=== PATIENT | female | born 1970 | race Caucasian/White ===

== ENCOUNTER 2020-03-12 11:34 | Inpatient (IN) | payer MEDICAID, SELFPAY ==
[2020-03-12 11:40] VITALS: BP 153/95; PULSE 92; RESP 18; TEMP 36.4; O2SAT 100; BMI 25.0
--- NOTE | 2020-03-12 11:52 | ED_ITS ---
HPI - Psych General: Chief Complaint: Psychiatric Symptoms Stated Complaint: direct admit npu Time Seen by Provider: 03/12/20 11:38 Source: patient and police Mode of arrival: other Limitations: no limitations History of Present Illness: HPI Narrative: 50-year-old female who is here from [place] with acute psychosis along with methamphetamine abuse. She does admit to using methamphetamine 1 day ago. Patient appears psychotic and has flight of ideas and is rambling and seems agitated. Patient is under a 96-hour hold and was a direct admit to the psychiatric unit and stop by the ER for COVID screening. She has had no fever or cough. Review of Systems Const: Denies: fever(s), chills, body aches or change in appetite Eyes: Denies: blurry vision or eye discomfort ENMT: Denies: throat pain or dental pain Card: Denies: chest pain Resp: Denies: dyspnea GI: Denies: abdominal pain, nausea, vomiting or diarrhea : Denies: dysuria Musc: Denies: neck pain or back pain Skin/Breast: Denies: rash Neuro: Denies: headache(s) Psych: Reports: paranoia Joey/Lymph: Denies: easy bruising All/Imm: Denies: urticaria Physical Exam Const: COMMON NORMALS: no acute distress and patient oriented x3 GENERAL APPEARANCE: disheveled HENMT: COMMON NORMALS: normocephalic and atraumatic HEAD & SCALP: normocephalic and atraumatic Eye: COMMON NORMALS: Equal, round and reactive pupils present and EOMs intact bilaterally PUPIL: Yes Equal, round and reactive pupils present Neck/C-Spine: COMMON NORMALS: full ROM and supple Chest: COMMONS NORMALS: normal inspection of the chest and normal palpation of entire chest wall Resp: COMMON NORMALS: normal respiratory effort, No retractions, No use of accessory muscles and clear to auscultation bilaterally AUSCULTATION: clear to auscultation bilaterally Cardio: COMMON NORMALS: regular rate, regular rhythm and No murmurs present (Cardio) RATE: regular rate RHYTHM: regular rhythm GI: COMMON NORMALS: Normal to inspection, nondistended, normoactive bowel sounds present, Soft to palpation, non-tender and no masses PALPATION: Yes Soft to palpation Extremity: COMMON NORMALS: normal to inspection and full ROM Neuro: COMMON NORMALS: patient oriented x3, moves all extremities and no focal motor deficits Psych: APPEARANCE: Yes unkempt ATTITUDE: Yes paranoid SPEECH: Yes excessive MOOD & AFFECT: Yes anxious THOUGHT PROCESS: Flight of ideas present Skin: COMMON NORMALS: no rashes or lesions noted and no wounds GENERAL SKIN EXAM: no rashes or lesions noted MDM - Psych MDM Narrative: Medical decision making narrative: Patient presents with acute psychosis along with methamphetamine abuse. Patient placed in a 96-hour [facility] and transferred here. Patient had no coronavirus symptoms and will admit to the psychiatric unit. Discharge Plan Discharge Patient Disposition: Admitted As Inpatient Clinical Impression: Drug-induced psychotic disorder, Acute psychosis Condition: Stable Coding Level of Care Code ED Appliance Service Supervisor for Marianne Sadler
[2020-03-12] MEDS: LORazepam 2 mg Tablet PO (12:02)
[2020-03-12 12:24] VITALS: BP 136/95; PULSE 97; RESP 20; TEMP 36.6; O2SAT 99
[2020-03-12 14:00] VITALS: BP 136/95; PULSE 97; RESP 20; TEMP 36.6
[2020-03-12] MEDS: LORazepam 0.5 mg Tablet PO ×2 (15:54→20:36)
[2020-03-12] MEDS: quetiapine 100 mg Tablet PO (20:35)
[2020-03-12] MEDS: trazodone 50 mg Tablet PO (20:36)
--- NOTE | 2020-03-12 20:40 | PC.NURSE ---
PRN TRAZODONE PT REQUESTING SLEEP AID. ADMINISTERED TRAZODONE 50 MG PO. WILL MONITOR FOR MEDICATION EFFECTIVENESS.
[2020-03-12 22:00] VITALS: BP 145/89; PULSE 102; RESP 18; TEMP 36.6; O2SAT 98
[2020-03-13 06:00] VITALS: RESP 17
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
[2020-03-13] MEDS: LORazepam 0.5 mg Tablet PO ×3 (08:06→20:59)
[2020-03-13] MEDS: OLANZapine 5 mg ODT PO (08:06)
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
--- NOTE | 2020-03-13 09:27 | PC.NURSE ---
0845 Carlita Kelley follow up Patient is sleeping and calm
[2020-03-13] MEDS: LORazepam 2 mg Tablet PO (10:36)
--- NOTE | 2020-03-13 10:39 | PC.NURSE ---
Lorazepam 2mg PO now medication given to help resolve psychosis and angitation.
--- NOTE | 2020-03-13 13:02 | PM.NHP ---
Providers/Chief Complaint Admitting Physician: Ken Valle MD Chief Complaint: direct admit npu HPI NPU History of Present Illness History of present illness:Lesley Johnson is a 50 year old female who was transferred from [facility] in [place] on a 96-hour involuntary commitment. The patient is unable to provide significant personal information or historic information at the time of interview as described below in her mental status. However records indicate that police found her [employer] [facility] in [facility]. She was presenting with disorganized and illogical behavior. There is no indication of suicidal or homicidal ideation or self-injurious activity. However she was quite confused and she was taken to the emergency room because of fear that she could not maintain herself free of danger. She admitted to police that she had been using methamphetamine. Records indicate that she had been in the [facility] emergency room multiple times before with similar problems. Urine drug screen is positive for amphetamines and marijuana. Alcohol level was below the measurable limit. Progress note from [facility] PSYCHOLOGY PROFESSOR says that the person had spoken with the daughter. Family indicated that the patient claimed that she was not doing drugs and admitted that she was also not being compliant with her psychiatric medications. Mental health history: Records indicate that she has been diagnosed with bipolar disorder, generalized anxiety disorder, PTSD, substance abuse disorder and the methamphetamine abuse. However there is no indication that he is diagnoses have been acquired from the reliable information source. Social history: Unknown Legal history: Public record indicates that most recently she was charged and convicted of second-degree burglary in 2016. Prior to that, she has arrests and convictions of harassment, placement of a protection order and arrest for marijuana possession. It is also noted that just 3 weeks ago she was in court for a landlord to try to get rent and have her evicted. Past medical history: Listed allergies that are not confirmed: Codeine, Geodon, Haldol, lisinopril Current medication list includes Lamictal, Wellbutrin, buspirone, hydrochlorothiazide, simvastatin, atenolol, hydroxyzine, and aspirin. hypertension, overactive bladder CBC is within normal limits. Routine chemistries within normal limits. Thyroid functions within normal limits. Urine drug screen is positive for amphetamines and marijuana. Alcohol level was below the measurable limit. Urinalysis was unremarkable. She smokes 1/2 pack of cigarettes per day. Meds NPU Allergies Allergy/AdvReac Type Severity Reaction Status Date / Time codeine Allergy Unknown Verified 03/12/20 13:38 haloperidol [From Haldol] Allergy Unknown Verified 03/12/20 13:39 lisinopril Allergy Unknown Verified 03/12/20 13:39 ziprasidone [From Geodon] Allergy Unknown Verified 03/12/20 13:39 Mental Status Exam MSE Comments: Mental Status Exam: The patient is observed through most of the morning to be wandering aimlessly about the unit. She speaks to people at random but does not carry on a conversation. In observation sometimes she appears to be ranting throwing her arms about. On entry into the interview room, she is interpersonally engaged. Eye contact is good. Psychomotoric activity is unremarkable. She is not believed to be a reliable informant that she provides no significant information. Appearance: hygiene is fair; no gross neurological deficits., gait is unremarkable; AIMS=0 Speech: Speech is of normal rate and rhythm. She is very difficult to understand and requires to repeats statements quite frequently. She demonstrates flight of ideas changing subjects almost randomly without completing a single sentence. Thought processes: Thought processes are disorganized with idiosyncratic logic.. Judgment is not adequate for safety. Psychotic processes: There is no indication of guarding or paranoia. There is no attention to the internal stimuli. Auditory and visual hallucinations are denied. Judgment: Insight is very poor. Problem solving skills are not adequate for safety. Orientation: The patient is oriented to person, and situation only. Memory: Not tested Attention: The patient is alert and interpersonally engaged. Language: Verbalizations are not coherent. Fund of knowledge: Fund of knowledge is very poor Affect/Mood: Affect is irritable with a euthymic mood. She denied suicidal ideation Affective range appropriate. Psychosis: Thought processes are so disorganized that she is effectively psychotic. She is unable to organize her understanding of her environment to an extent that she is incapable of remaining out of harm's way and making socially adaptive and life-saving decisions. Vitals/I&O/Wt Last Vital Signs Temp 97.8 F 03/12/20 22:00 Pulse 102 H 03/12/20 22:00 Resp 17 03/13/20 06:00 BP 145/89 03/12/20 22:00 Pulse Ox 98 03/12/20 22:00 Weight last 48 hrs Weight 54.431 kg A&P Additional A&P Information Diagnoses: Amphetamine intoxication with psychosis Assessment: Patient requires forced hospitalization at this time as she is incapable of remaining in the environment and maintaining safety due to her level of disorganized thinking. Treatment plan: Due to the psychiatric conditions and treatment listed in the Assessment and Plan - the patient requires continued hospitalization. Will provide a safe and therapeutic environment for patient.. Will continue inpatient treatment to allow for medication adjustment and monitoring. Will continue q15 min safety checks. Will continue current medications and monitor for medication side effects. Monitor patient's mood, sleep, appetite, and behavior closely. Encourage patient to participate in individual and group therapeutic sessions on the varner. Estimated length of stay 5 days The expected benefits and potential side effects of patient's psychiatric medications were discussed with the patient. The patient understands and consents to treatment.CRITERIA FOR DISCHARGE: stable on medications and no longer an imminent risk Involuntary Hold Information 96 Hour Hold: 96 Hour Involuntary Admission: Yes 96 Hour Hold Ending Date: 03/18/20 96 Hour Hold Ending Time: 12:25 Attestations NPU Medical Necessity Statement*: Patient remained in the hospital another 4-6 nights for the completion of her 96-hour involuntary commitment Coding Level of Care Code Acute Locomotive Boilermaker for Marianne Sadler
[2020-03-13 13:43] VITALS: BP 154/90; PULSE 107; RESP 18; TEMP 36.3; O2SAT 98
[2020-03-13] MEDS: quetiapine 100 mg Tablet PO (20:59)
[2020-03-13] MEDS: trazodone 50 mg Tablet PO (20:59)
--- NOTE | 2020-03-13 20:59 | PC.NURSE ---
PRN TRAZODONE PT REQUESTING SLEEP AID. ADMINISTERED TRAZODONE 50 MG PO. WILL MONITOR FOR MEDICATION EFFECTIVENESS.
[2020-03-13 22:00] VITALS: RESP 17
[2020-03-14] MEDS: OLANZapine 5 mg ODT PO (02:09)
--- NOTE | 2020-03-14 02:11 | PC.NURSE ---
PRN ZYPREXA ZYDIS PT BECOMING INCREASINGLY AGITATED. ADMINISTERED ZYPREXA ZYDIS 5 MG SUBLINGUAL. WILL MONITOR FOR MEDICATION EFFECTIVENESS.
[2020-03-14 06:00] VITALS: BP 144/94; PULSE 97; RESP 18; TEMP 36.4; O2SAT 97
[2020-03-14] MEDS: LORazepam 2 mg Tablet (08:45)
[2020-03-14] MEDS: OLANZapine 5 mg ODT (08:45)
--- NOTE | 2020-03-14 11:11 | PM.NPN ---
Subjective NPU Subjective: Interval history: Patient is without complaint. She continues to be confused. Mental Status Exam MSE Comments: Mental Status Exam: The patient is observed through most of the morning to be wandering aimlessly about the unit. She speaks to people at random but does not carry on a conversation. In observation sometimes she appears to be ranting throwing her arms about. Eye contact is good. Psychomotoric activity is unremarkable. She is not believed to be a reliable informant that she provides no significant information. Appearance: hygiene is fair; no gross neurological deficits., gait is unremarkable; AIMS=0 Speech: Speech is of normal rate and rhythm. She is very difficult to understand and requires to repeats statements quite frequently. She demonstrates flight of ideas changing subjects almost randomly without completing a single sentence. Thought processes: Thought processes are disorganized with idiosyncratic logic.. Judgment is not adequate for safety. Psychotic processes: There is no indication of guarding or paranoia. There is no attention to the internal stimuli. Auditory and visual hallucinations are denied. Judgment: Insight is very poor. Problem solving skills are not adequate for safety. Orientation: The patient is oriented to person, and situation only. Memory: Not tested Attention: The patient is alert and interpersonally engaged. Language: Verbalizations are not coherent. Fund of knowledge: Fund of knowledge is very poor Affect/Mood: Affect is irritable with a euthymic mood. She denied suicidal ideation Affective range appropriate. Psychosis: Thought processes are so disorganized that she is effectively psychotic. She is unable to organize her understanding of her environment to an extent that she is incapable of remaining out of harm's way and making socially adaptive and life-saving decisions. Cognition: Patient Appearance: Appropriate Level of Consciousness: Disoriented Patient Cognition Impaired: Yes (drug use) Ability to Follow Directions: Poor Patient Orientation (long list): Person, Place and Month Comprehension Ability: Moderate Impairment Hallucination Type: None Delusion Description: Not Present Thought Process: Confused and Disorganized Affect: Affect Description: Guarded Behavior: Patient Behavior: Irritable, Negative and Withdrawn Speech Pattern: Pressured and Rambling Vitals/I&O/Wt Last Vital Signs Temp 97.6 F 03/14/20 06:00 Pulse 97 03/14/20 06:00 Resp 18 03/14/20 06:00 BP 144/94 03/14/20 06:00 Pulse Ox 97 03/14/20 06:00 Weight last 48 hrs Weight 54.431 kg A&P Additional A&P Information Diagnoses: Amphetamine intoxication with psychosis Psychotic disorder not otherwise specified Assessment: Patient requires forced hospitalization at this time as she is incapable of remaining in the environment and maintaining safety due to her level of disorganized thinking. Treatment plan: Due to the psychiatric conditions and treatment listed in the Assessment and Plan - the patient requires continued hospitalization. Will provide a safe and therapeutic environment for patient.. Will continue inpatient treatment to allow for medication adjustment and monitoring. Will continue q15 min safety checks. Hospital day #1: Will continue current medications and monitor for medication side effects. Hospital day #2: Patient continues to be disorganized in her thinking and not effectively interacting with her environment. She is now 48 hours at out of her presentation to the emergency room and free of amphetamine use. She is demonstrating no significant improvement. The intent at this time is to address her psychosis as though it is not amphetamine induced and more likely an underlying schizophrenia. Plan: Increase Seroquel to 25 mg 3 times daily and 200 mg at bedtime. Monitor patient's mood, sleep, appetite, and behavior closely. Encourage patient to participate in individual and group therapeutic sessions on the varner. Estimated length of stay 5 days The expected benefits and potential side effects of patient's psychiatric medications were discussed with the patient. The patient understands and consents to treatment.CRITERIA FOR DISCHARGE: stable on medications and no longer an imminent risk Involuntary Hold Information 96 Hour Hold: 96 Hour Involuntary Admission: Yes 96 Hour Hold Ending Date: 03/18/20 96 Hour Hold Ending Time: 12:25 Attestations NPU Medical Necessity Statement*: Patient will remain in the hospital another 4-6 nights for the function of her 96-hour involuntary commitment. Coding Level of Care Code Acute Vacuum Cleaner Repair Person for Marianne Sadler
[2020-03-14] MEDS: nicotine 2 mg Gum BUCCAL ×2 (13:05→21:31)
[2020-03-14 14:00] VITALS: BP 143/101; PULSE 98; RESP 18; TEMP 36.7; O2SAT 97
[2020-03-14] MEDS: quetiapine 25 mg Tablet PO ×2 (14:23→20:41)
[2020-03-14] MEDS: hyDROXYzine 25 mg Capsule 50 MG PO (14:23)
[2020-03-14] MEDS: quetiapine 100 mg Tablet 200 MG PO (20:41)
[2020-03-14 22:00] VITALS: BP 154/97; PULSE 101; RESP 18; TEMP 36.8; O2SAT 99
[2020-03-15 06:00] VITALS: BP 160/90; PULSE 90; RESP 20; TEMP 36.3; O2SAT 97
[2020-03-15] MEDS: hyDROXYzine 25 mg Capsule 50 MG PO ×2 (08:24→21:00)
[2020-03-15] MEDS: quetiapine 25 mg Tablet PO ×3 (08:24→20:59)
--- NOTE | 2020-03-15 08:25 | PC.NURSE ---
PRN VISTARIL 50 MG GIVEN PO PER PT C/O ANXIETY. PT HAS BEEN PACING HALLWAYS, MUTTERING TO HERSELF, CURSING AT TIMES. WILL CONT TO MONITOR
--- NOTE | 2020-03-15 08:59 | PM.NPN ---
Subjective NPU Subjective: Interval history: I need to get out of this place. My daughtere has a big black car. Im going ot have her come get me. The bible is protecting me. It will get me back to [place] . Pt unaware of date. She states the court order doesn't matter as she is going ot go home. She does not know why she is here and has no insight to her problem. Mental Status Exam MSE Comments: Mental Status Exam: Pt encountered resting in bed. She is more engaged in terms of responding to social cues but does not actually have an interactive converation. Eye contact is poor. Psychomotoric activity is unremarkable. She is not believed to be a reliable informant that she provides no significant information. Appearance: hygiene is fair; no gross neurological deficits., gait is unremarkable; AIMS=0 Speech: Speech is of normal rate and rhythm. The clarity of her communication has improved considerably. . She no longer demonstrates flight of ideas . But she perseverates on restorationist explanations of her current situation Thought processes: Thought processes are disorganized with idiosyncratic logic.. Judgment is not adequate for safety. Psychotic processes: There is no indication of guarding or paranoia. There is no attention to the internal stimuli. Auditory and visual hallucinations are denied. Judgment: Insight is very poor. Problem solving skills are not adequate for safety. Orientation: The patient is oriented to person, and situation only. Memory: Not tested Attention: The patient is alert and interpersonally engaged. Language: Verbalizations are not coherent. Fund of knowledge: Fund of knowledge is very poor Affect/Mood: Affect is irritable with a euthymic mood. She denied suicidal ideation Affective range appropriate. Psychosis: Thought processes still disorganized and she is effectively psychotic. She is unable to organize her understanding of her environment to an extent that she is incapable of remaining out of harm's way and making socially adaptive and life-saving decisions. Cognition: Patient Appearance: Appropriate Level of Consciousness: Disoriented Patient Cognition Impaired: Yes (drug use) Ability to Follow Directions: Poor Patient Orientation (long list): Person, Place and Month Comprehension Ability: Moderate Impairment Hallucination Type: None Delusion Description: Not Present Thought Process: Appropriate Affect: Affect Description: Appropriate Behavior: Patient Behavior: Appropriate Speech Pattern: Appropriate and Clear Vitals/I&O/Wt Last Vital Signs Temp 97.4 F L 03/15/20 06:00 Pulse 90 03/15/20 06:00 Resp 20 H 03/15/20 06:00 BP 160/90 03/15/20 06:00 Pulse Ox 97 03/15/20 06:00 A&P Additional A&P Information Diagnoses: Amphetamine intoxication with psychosis Psychotic disorder not otherwise specified Assessment: Patient requires forced hospitalization at this time as she is incapable of remaining in the environment and maintaining safety due to her level of disorganized thinking. Treatment plan: Due to the psychiatric conditions and treatment listed in the Assessment and Plan - the patient requires continued hospitalization. Will provide a safe and therapeutic environment for patient.. Will continue inpatient treatment to allow for medication adjustment and monitoring. Will continue q15 min safety checks. Hospital day #1: Will continue current medications and monitor for medication side effects. Hospital day #2: Patient continues to be disorganized in her thinking and not effectively interacting with her environment. She is now 48 hours at out of her presentation to the emergency room and free of amphetamine use. She is demonstrating no significant improvement. The intent at this time is to address her psychosis as though it is not amphetamine induced and more likely an underlying schizophrenia. Plan: Increase Seroquel to 25 mg 3 times daily and 200 mg at bedtime. Hospital day #3: I need to get out of this place. My daughtere has a big black car. Im going ot have her come get me. The bible is protecting me. It will get me back to [place] . Pt unaware of date. She states the court order doesn't matter as she is going ot go home. She does not know why she is here and has no insight to her problem. Plan: Increase Seroquel at bedtime to 400 mg and continue 3 times daily dosing at 25 mg. Patient remains on a 96-hour involuntary commitment. Monitor patient's mood, sleep, appetite, and behavior closely. Encourage patient to participate in individual and group therapeutic sessions on the varner. Estimated length of stay 5 days The expected benefits and potential side effects of patient's psychiatric medications were discussed with the patient. The patient understands and consents to treatment.CRITERIA FOR DISCHARGE: stable on medications and no longer an imminent risk Involuntary Hold Information 96 Hour Hold: 96 Hour Involuntary Admission: Yes 96 Hour Hold Ending Date: 03/18/20 96 Hour Hold Ending Time: 12:25 Attestations NPU Medical Necessity Statement*: Patient will remain in the hospital another 3-4 nights for the duration of her 96-hour involuntary commitment. Coding Level of Care Code Acute Burr Bench Operator for Marianne Sadler
[2020-03-15 13:33] VITALS: BP 143/83; PULSE 101; RESP 20; TEMP 36.7; O2SAT 98
[2020-03-15] MEDS: nicotine 2 mg Gum BUCCAL (17:10)
[2020-03-15] MEDS: quetiapine 100 mg Tablet 400 MG PO (21:00)
[2020-03-15 22:00] VITALS: BP 120/83; PULSE 105; RESP 20; TEMP 37; O2SAT 96
[2020-03-16 06:00] VITALS: BP 155/92; PULSE 95; RESP 20; TEMP 36.4; O2SAT 98
[2020-03-16] MEDS: quetiapine 25 mg Tablet PO ×4 (08:51→20:38)
[2020-03-16] MEDS: nicotine 21 mg Patch 1 PATCH TRANSDERMA (09:27)
[2020-03-16 14:00] VITALS: BP 136/82; PULSE 94; RESP 17; TEMP 36.6; O2SAT 96
[2020-03-16] MEDS: acetaminophen 325 mg Tablet 650 MG PO ×2 (17:30→20:39)
--- NOTE | 2020-03-16 19:00 | PM.NPN ---
Subjective NPU Subjective: Interval history: The patient babbles incoherently. I am not sure what she is reporting but her mood is certainly related, indeed mildly euphoric. I explained to her about the likelihood of her having to go before the personnel recruiter to request a 21-day extension. I do not think she completely understood but was not upset. I also explained to her my intent to put her on lithium, upon which she had been a long, long time ago and the need for monitoring. Again I am not sure how much got through the verbal static. Medications: Reviewed: Yes Medication Review Details: Current Medications Acetaminophen (Tylenol) 650 mg PO Q4H PRN PRN Reason: MILD PAIN Last Admin: 03/16/20 17:30 Dose: 650 mg Documented by: Benztropine Mesylate (Cogentin) 1 mg PO BID PRN PRN Reason: Mild Extrapyramidal symptoms Camphor/Menthol/Phenol (Blistex) 1 applic TOPICAL Q1H PRN PRN Reason: DRYNESS Diphenhydramine HCl (Benadryl) 50 mg IM ONCE PRN PRN Reason: Severe Extrapyramidal Symptoms Diphenhydramine HCl (Benadryl) 50 mg IM Q4H PRN PRN Reason: Severe Aggression Hydroxyzine Pamoate (Vistaril) 50 mg PO Q6H PRN PRN Reason: ANXIETY Last Admin: 03/15/20 21:00 Dose: 50 mg Documented by: [place] Carbonate (Eskalith) 150 mg PO BID [place] Loperamide HCl (Imodium Capsule) 2 mg PO Q6H PRN PRN Reason: DIARRHEA Nicotine (Nicoderm 21 Mg Patch) 1 patch TRANSDERMA DAILY PRN PRN Reason: NICOTINE WITHDRAWAL Last Admin: 03/16/20 09:27 Dose: 1 patch Documented by: Nicotine Polacrilex (Nicorette) 2 mg BUCCAL Q2H PRN PRN Reason: NICOTINE WITHDRAWAL Last Admin: 03/15/20 17:10 Dose: 2 mg Documented by: Olanzapine (Zyprexa Zydis) 5 mg PO Q4H PRN PRN Reason: Agitation/Psychosis Last Admin: 03/14/20 02:09 Dose: 5 mg Documented by: Ondansetron HCl (Zofran) 4 mg PO Q6H PRN PRN Reason: NAUSEA AND VOMITING Quetiapine Fumarate (Seroquel) 25 mg PO TID [facility] Last Admin: 03/16/20 14:48 Dose: 25 mg Documented by: Quetiapine Fumarate (Seroquel) 400 mg PO BEDTIME [facility] Last Admin: 03/15/20 21:00 Dose: 400 mg Documented by: Mental Status Exam MSE Comments: I am not sure why she looks so much worse than the mental status set forth by my predecessor. She is surely not as well integrated as he described her just yesterday. This is a 50-year-old diminutive female who seems to have reasonable hygiene. Mood is slightly euphoric and affect is labile. Thought processes are racing and given to flight of ideas. Speech is of normal volume but highly pressured but easily understood insofar as enunciation is concerned. The content of her verbalizations spills out of her and is not clear to me at all. Vitals/I&O/Wt Last Vital Signs Temp 97.8 F 03/16/20 14:00 Pulse 94 03/16/20 14:00 Resp 17 03/16/20 14:00 BP 136/82 03/16/20 14:00 Pulse Ox 96 03/16/20 14:00 Weight last 48 hrs Weight 126 lb 8 oz Physical Exam Narrative: EXAM NARRATIVE: Const: COMMON NORMALS: no acute distress and patient oriented x3 GENERAL APPEARANCE: disheveled HENMT: COMMON NORMALS: normocephalic and atraumatic HEAD & SCALP: normocephalic and atraumatic Eye: COMMON NORMALS: Equal, round and reactive pupils present and EOMs intact bilaterally PUPIL: Yes Equal, round and reactive pupils present Neck/C-Spine: COMMON NORMALS: full ROM and supple Chest: COMMONS NORMALS: normal inspection of the chest and normal palpation of entire chest wall Resp: COMMON NORMALS: normal respiratory effort, No retractions, No use of accessory muscles and clear to auscultation bilaterally AUSCULTATION: clear to auscultation bilaterally Cardio: COMMON NORMALS: regular rate, regular rhythm and No murmurs present (Cardio) RATE: regular rate RHYTHM: regular rhythm GI: COMMON NORMALS: Normal to inspection, nondistended, normoactive bowel sounds present, Soft to palpation, non-tender and no masses PALPATION: Yes Soft to palpation Extremity: COMMON NORMALS: normal to inspection and full ROM Neuro: COMMON NORMALS: patient oriented x3, moves all extremities and no focal motor deficits Psych: APPEARANCE: Yes unkempt ATTITUDE: Yes paranoid SPEECH: Yes excessive MOOD & AFFECT: Yes anxious THOUGHT PROCESS: Flight of ideas present Skin: COMMON NORMALS: no rashes or lesions noted and no wounds GENERAL SKIN EXAM: no rashes or lesions noted A&P Assessment and plan (1) Bipolar 1 disorder, manic, moderate: I believe this woman is not psychotic but is rather in the throes of a moderate manic episode. She says she was on lithium before. Why would that be? Status: Acute Involuntary Hold Information 96 Hour Hold: 96 Hour Involuntary Admission: Yes 96 Hour Hold Ending Date: 03/18/20 96 Hour Hold Ending Time: 12:25 Attestations NPU Medical Necessity Statement*: I anticipate 10-12 midnights additional hospitalization Time Spent in Patient Care: Greater than 35 minutes Coding Level of Care Code Acute Supervisor [employer] for [facility] Viktoriya Diagnoses Bipolar 1 disorder, manic, moderate F31.12
[2020-03-16] MEDS: quetiapine 100 mg Tablet 400 MG PO (20:38)
[2020-03-16] MEDS: hyDROXYzine 25 mg Capsule 50 MG PO (20:38)
[2020-03-16] MEDS: nicotine 2 mg Gum BUCCAL (21:38)
[2020-03-16] MEDS: OLANZapine 5 mg ODT PO (21:57)
[2020-03-16 22:00] VITALS: BP 171/97; PULSE 104; RESP 18; TEMP 36.6; O2SAT 98
[2020-03-17 06:00] VITALS: RESP 15
[2020-03-17] MEDS: quetiapine 25 mg Tablet PO (08:25)
[2020-03-17] MEDS: lithium carbonate 150 mg Capsule PO ×2 (08:25→16:56)
[2020-03-17] MEDS: nicotine 2 mg Gum BUCCAL ×2 (08:25→14:24)
[2020-03-17] MEDS: chlorPROMazine 50 mg Tablet (12:19)
[2020-03-17] MEDS: chlorPROMazine 25 mg Tablet PO ×2 (12:23→12:26)
--- NOTE | 2020-03-17 12:27 | PC.NURSE ---
Addendum entered by Merna Yang LPN 03/17/20 12:35: PATIENT WAS YELLING AT THE NURSES STATION AND PUSHED HER BIBLE UP AGAINST ANOTHER PATIENTS BODY AND YELLED AT HER. NO HARM DONE TO OTHER PATIENT. Original Note: PRN THORAZINE THORAZINE 25MG PO FOR AGITATION. PATIENT IS YELLING AND SCREAMING ABOUT THE DEVIL. WILL CONTINUE TO MONITOR FOR MEDICATION EFFECTIVENESS.
--- NOTE | 2020-03-17 13:30 | PC.NURSE ---
PRN THORAZINE FOLLOW UP MEDICATION SOMEWHAT EFFECTIVE. PATIENT IS PACING THE HALLS BUT COOPERATIVE.
[2020-03-17 13:52] VITALS: BP 137/91; PULSE 101; RESP 18; TEMP 36.7; O2SAT 98
[2020-03-17] MEDS: acetaminophen 325 mg Tablet 650 MG PO ×2 (14:26→22:58)
--- NOTE | 2020-03-17 16:15 | P.PN_ITS ---
Subjective NPU Subjective: Interval history: The patient is quite variable. She has been the same day multiply as gone to [facility] alternating with vituperative villification. She has no insight or judgment and is not possible to talk to her, as she just keeps rambling on. Medications: Reviewed: Yes Medication Review Details: Current Medications Acetaminophen (Tylenol) 650 mg PO Q4H PRN PRN Reason: MILD PAIN Last Admin: 03/17/20 14:26 Dose: 650 mg Documented by: Benztropine Mesylate (Cogentin) 1 mg PO BID PRN PRN Reason: Mild Extrapyramidal symptoms Camphor/Menthol/Phenol (Blistex) 1 applic TOPICAL Q1H PRN PRN Reason: DRYNESS Chlorpromazine HCl (Thorazine) 25 mg PO Q4H PRN PRN Reason: AGITATION Last Admin: 03/17/20 12:26 Dose: 25 mg Documented by: Chlorpromazine HCl (Thorazine) 50 mg PO BID [facility] Diphenhydramine HCl (Benadryl) 50 mg IM ONCE PRN PRN Reason: Severe Extrapyramidal Symptoms Diphenhydramine HCl (Benadryl) 50 mg IM Q4H PRN PRN Reason: Severe Aggression Hydroxyzine Pamoate (Vistaril) 50 mg PO Q6H PRN PRN Reason: ANXIETY Last Admin: 03/16/20 20:38 Dose: 50 mg Documented by: [place] Carbonate (Eskalith) 150 mg PO BID [place] Last Admin: 03/17/20 08:25 Dose: 150 mg Documented by: Loperamide HCl (Imodium Capsule) 2 mg PO Q6H PRN PRN Reason: DIARRHEA Nicotine (Nicoderm 21 Mg Patch) 1 patch TRANSDERMA DAILY PRN PRN Reason: NICOTINE WITHDRAWAL Last Admin: 03/16/20 09:27 Dose: 1 patch Documented by: Nicotine Polacrilex (Nicorette) 2 mg BUCCAL Q2H PRN PRN Reason: NICOTINE WITHDRAWAL Last Admin: 03/17/20 14:24 Dose: 2 mg Documented by: Olanzapine (Zyprexa Zydis) 5 mg PO Q4H PRN PRN Reason: Agitation/Psychosis Last Admin: 03/16/20 21:57 Dose: 5 mg Documented by: Ondansetron HCl (Zofran) 4 mg PO Q6H PRN PRN Reason: NAUSEA AND VOMITING Mental Status Exam MSE Comments: The patient sury has described above. Her mood alternates between highly irascible and Bible waving restoration. Thought processes are utterly disrupted and she is very possibly delusional but it is impossible to have a rational conversation with her. She is utterly bereft of insight and speech is pressured. There is no way she could be safely discharged to the streets or to any half-way. Vitals/I&O/Wt Last Vital Signs Temp 98.0 F 03/17/20 13:52 Pulse 101 H 03/17/20 13:52 Resp 18 03/17/20 13:52 BP 137/91 03/17/20 13:52 Pulse Ox 98 03/17/20 13:52 Weight last 48 hrs Weight 126 lb 8 oz Physical Exam Narrative: EXAM NARRATIVE: Const: COMMON NORMALS: no acute distress and patient oriented x3 GENERAL APPEARANCE: disheveled HENMT: COMMON NORMALS: normocephalic and atraumatic HEAD & SCALP: normocephalic and atraumatic Eye: COMMON NORMALS: Equal, round and reactive pupils present and EOMs intact bilaterally PUPIL: Yes Equal, round and reactive pupils present Neck/C-Spine: COMMON NORMALS: full ROM and supple Chest: COMMONS NORMALS: normal inspection of the chest and normal palpation of entire chest wall Resp: COMMON NORMALS: normal respiratory effort, No retractions, No use of accessory muscles and clear to auscultation bilaterally AUSCULTATION: clear to auscultation bilaterally Cardio: COMMON NORMALS: regular rate, regular rhythm and No murmurs present (Cardio) RATE: regular rate RHYTHM: regular rhythm GI: COMMON NORMALS: Normal to inspection, nondistended, normoactive bowel sounds present, Soft to palpation, non-tender and no masses PALPATION: Yes Soft to palpation Extremity: COMMON NORMALS: normal to inspection and full ROM Neuro: COMMON NORMALS: patient oriented x3, moves all extremities and no focal motor deficits Psych: APPEARANCE: Yes unkempt ATTITUDE: Yes paranoid SPEECH: Yes excessive MOOD & AFFECT: Yes anxious THOUGHT PROCESS: Flight of ideas present Skin: COMMON NORMALS: no rashes or lesions noted and no wounds GENERAL SKIN EXAM: no rashes or lesions noted A&P Assessment and plan (1) Bipolar 1 disorder, manic, moderate: Status: Acute Involuntary Hold Information 96 Hour Hold: 96 Hour Involuntary Admission: Yes 96 Hour Hold Ending Date: 03/18/20 96 Hour Hold Ending Time: 12:25 Attestations NPU Medical Necessity Statement*: I anticipate 10-12 midnights additional hospitalization Time Spent in Patient Care: Greater than 35 minutes (>than 50% of time spent in counselling and/or direct pt care on unit) . Much of my time was spent filling out the legal paperwork to extend her involuntary hospitalization. Coding Level of Care Code Acute Hyperbaric Technician for [facility] Diagnoses Bipolar 1 disorder, manic, moderate F31.12
[2020-03-17] MEDS: chlorPROMazine 50 mg Tablet PO (16:56)
[2020-03-17 20:49] VITALS: BP 167/108; PULSE 107; RESP 21; TEMP 36.6; O2SAT 98
[2020-03-17] MEDS: OLANZapine 5 mg ODT PO (22:58)
[2020-03-17] MEDS: hyDROXYzine 25 mg Capsule 50 MG PO (22:58)
--- NOTE | 2020-03-18 00:29 | PC.NURSE ---
PRN VISTARIL & ZYPREXA PT REQUESTING SOMETHING FOR ANXIETY AND AGITATION. VISTARIL 50MG PO AND ZYPREXA ZYDIS 5MG SUBLINGUAL ADMINISTERED. WILL MONITOR FOR MEDICATION EFFECTIVENESS.
[2020-03-18] MEDS: hyDROXYzine 25 mg Capsule 50 MG PO ×2 (05:04→08:07)
--- NOTE | 2020-03-18 05:10 | PC.NURSE ---
PRN VISTARIL PT GIVEN VISTARIL 50 MG PO FOR PT C/O OF INCREASING ANXIETY. WILL MONITOR FOR MEDICATION EFFECTIVENESS.
[2020-03-18] MEDS: OLANZapine 5 mg ODT PO (05:21)
--- NOTE | 2020-03-18 05:23 | PC.NURSE ---
PRN ZYPREXA ZYDIS ADMINISTERED ZYPREXA ZYDIS 5MG SUBLINGUAL FOR INCREASING AGITATION. WILL CONTINUE TO MONITOR.
[2020-03-18 06:00] VITALS: BP 154/75; PULSE 98; RESP 17; TEMP 36.8; O2SAT 99
[2020-03-18] MEDS: chlorPROMazine 50 mg Tablet PO ×2 (08:07→18:08)
[2020-03-18] MEDS: diazePAM 5 mg Tablet PO ×4 (08:07→21:34)
[2020-03-18] MEDS: lithium carbonate 150 mg Capsule PO ×2 (08:07→18:08)
--- NOTE | 2020-03-18 08:08 | PC.NURSE ---
Addendum entered by Onelia Lomax LPN 03/18/20 11:02: prn med effective no further c/o anxiety Original Note: PRN VISTARIL 50 MG GIVEN PO PER PT C/O ANXIETY. PT PACING UNIT, RAPID SPEECH, CURSING TALKING ABOUT SATAN A LOT. WILL CONT TO MONITOR
[2020-03-18] MEDS: nicotine 2 mg Gum BUCCAL ×2 (08:45→14:24)
--- NOTE | 2020-03-18 11:27 | PC.NURSE ---
PATIENT PACING UP AND DOWN HOANG, 1:1 SITTER AT HER SIDE. PATIENT IS ANGRILY CUSSING AND BEING DEMANDING, RAMBLING NONSENSICAL VERBAGE. PHYSICIAN NOTIFIED. VALIUM 5MG PO ADMINISTERED WITHOUT DIFFICULTY. WILL MONITOR FOR DRUG EFFECTIVENESS
--- NOTE | 2020-03-18 12:23 | PM.NPN ---
Subjective NPU Subjective: Interval history: The patient continues to roam hither and yon on the unit and to verbalize to anyone in earshot of her. We have filed for a hearing on a 21-day extension. We have begun lithium titration and added Thorazine for short-term intervention when she escalates, which she did when she was served. As usual, she oscillates between villification and blessings. Medications: Reviewed: Yes Medication Review Details: Current Medications Acetaminophen (Tylenol) 650 mg PO Q4H PRN PRN Reason: MILD PAIN Last Admin: 03/17/20 22:58 Dose: 650 mg Documented by: Benztropine Mesylate (Cogentin) 1 mg PO BID PRN PRN Reason: Mild Extrapyramidal symptoms Camphor/Menthol/Phenol (Blistex) 1 applic TOPICAL Q1H PRN PRN Reason: DRYNESS Chlorpromazine HCl (Thorazine) 25 mg PO Q4H PRN PRN Reason: AGITATION Last Admin: 03/17/20 12:26 Dose: 25 mg Documented by: Chlorpromazine HCl (Thorazine) 50 mg PO BID [facility] Last Admin: 03/18/20 08:07 Dose: 50 mg Documented by: Diazepam (Valium) 5 mg PO TID [facility] Last Admin: 03/18/20 08:07 Dose: 5 mg Documented by: Diphenhydramine HCl (Benadryl) 50 mg IM ONCE PRN PRN Reason: Severe Extrapyramidal Symptoms Diphenhydramine HCl (Benadryl) 50 mg IM Q4H PRN PRN Reason: Severe Aggression Hydroxyzine Pamoate (Vistaril) 50 mg PO Q6H PRN PRN Reason: ANXIETY Last Admin: 03/18/20 08:07 Dose: 50 mg Documented by: [place] Carbonate (Eskalith) 150 mg PO BID [facility] Last Admin: 03/18/20 08:07 Dose: 150 mg Documented by: Loperamide HCl (Imodium Capsule) 2 mg PO Q6H PRN PRN Reason: DIARRHEA Nicotine (Nicoderm 21 Mg Patch) 1 patch TRANSDERMA DAILY PRN PRN Reason: NICOTINE WITHDRAWAL Last Admin: 03/16/20 09:27 Dose: 1 patch Documented by: Nicotine Polacrilex (Nicorette) 2 mg BUCCAL Q2H PRN PRN Reason: NICOTINE WITHDRAWAL Last Admin: 03/18/20 08:45 Dose: 2 mg Documented by: Olanzapine (Zyprexa Zydis) 5 mg PO Q4H PRN PRN Reason: Agitation/Psychosis Last Admin: 03/18/20 05:21 Dose: 5 mg Documented by: Ondansetron HCl (Zofran) 4 mg PO Q6H PRN PRN Reason: NAUSEA AND VOMITING Mental Status Exam MSE Comments: This is a 50-year-old female who paces about the unit and talks a great deal, although without making a lot of sense. It is hard to tell whether she is actually delusional or simply manic. Mood is now angry, now happy, depending on the moment. Affect is wide ranging. Cognitive functions are derailed at the moment and she is bereft of insight and judgment. Fortunately suicidal and homicidal ideation, plan and intent are the farthest things from her mind. Vitals/I&O/Wt Last Vital Signs Temp 98.2 F 03/18/20 06:00 Pulse 98 03/18/20 06:00 Resp 17 03/18/20 06:00 BP 154/75 03/18/20 06:00 Pulse Ox 99 03/18/20 06:00 Physical Exam Narrative: EXAM NARRATIVE: COMMON NORMALS: no acute distress and patient oriented x3 GENERAL APPEARANCE: disheveled HENMT: normocephalic and atraumatic Eye: Equal, round and reactive pupils present and EOMs intact bilaterally PUPIL: Yes Equal, round and reactive pupils present Neck/C-Spine: full ROM and supple Chest: normal inspection of the chest and normal palpation of entire chest wall Resp: normal respiratory effort, No retractions, No use of accessory muscles and clear to auscultation bilaterally AUSCULTATION: clear to auscultation bilaterally Cardio: regular rate, regular rhythm and No murmurs present (Cardio) RATE: regular rate RHYTHM: regular rhythm GI: Normal to inspection, nondistended, normoactive bowel sounds present, Soft to palpation, non-tender and no masses PALPATION: Yes Soft to palpation Extremity: normal to inspection and full ROM Neuro: patient oriented x3, moves all extremities and no focal motor deficits Skin: no rashes or lesions noted and no wounds GENERAL SKIN EXAM: no rashes or lesions noted A&P Assessment and plan (1) Bipolar 1 disorder, manic, moderate: Status: Acute Involuntary Hold Information 96 Hour Hold: 96 Hour Involuntary Admission: Yes 96 Hour Hold Ending Date: 03/18/20 96 Hour Hold Ending Time: 12:25 Attestations NPU Medical Necessity Statement*: I anticipate 5-7 midnights. Time Spent in Patient Care: 16 - 35 minutes (>than 50% of time spent in counselling and/or direct pt care on unit). Coding Level of Care Code Acute Clinical Investigator for Marianne Sadler Diagnoses Bipolar 1 disorder, manic, moderate F31.12
--- NOTE | 2020-03-18 13:55 | PC.NURSE ---
PATIENT RESTING QUIETLY, NO DISTRESS NOTED. WILL CONT TO MONITOR
[2020-03-18 14:00] VITALS: BP 150/85; PULSE 107; RESP 16; TEMP 36.3; O2SAT 98
[2020-03-18] MEDS: acetaminophen 325 mg Tablet 650 MG PO (15:15)
[2020-03-18 19:56] VITALS: BP 152/62; PULSE 108; RESP 17; TEMP 36.7; O2SAT 98
[2020-03-19 05:59] VITALS: BP 162/100; PULSE 98; RESP 22; TEMP 36.4; O2SAT 98
[2020-03-19] MEDS: diazePAM 5 mg Tablet PO ×4 (07:40→20:56)
[2020-03-19] MEDS: chlorPROMazine 50 mg Tablet PO ×2 (08:15→17:11)
[2020-03-19] MEDS: lithium carbonate 150 mg Capsule PO ×2 (08:15→17:11)
[2020-03-19 08:36] LABS: Lithium 0.1 mmol/L (0.6-1.2)
[2020-03-19] MEDS: nicotine 21 mg Patch 1 PATCH TRANSDERMA (08:39)
[2020-03-19] MEDS: chlorPROMazine 25 mg Tablet PO (09:23)
[2020-03-19] MEDS: LORazepam 2 mg Tablet PO (09:23)
--- NOTE | 2020-03-19 09:25 | PC.NURSE ---
Addendum entered by Onelia Lomax LPN 03/19/20 11:19: PRN MED SOMEWHAT EFFECTIVE, PT MOOD IS CALMER Original Note: PRN THORAZINE 25 MG GIVEN PO PER PT C/O AGITATION. PT YELLING, CURSING, CALLING OTHER PATIENTS ON THE UNIT BITCHES AND CUNTS DIFFICULT TO BE REDIRECTED. THREW TRASH DOWN THE HALLWAY. VERY ARGUMENTATIVE. WILL CONT TO MONITOR
--- NOTE | 2020-03-19 11:09 | PM.NPN ---
Subjective NPU Subjective: Interval history: The patient is slightly less active today. However, she remains completely disorganized in her behavior and thought process. She is bereft of insight and judgment. Mental Status Exam MSE Comments: his is a 50-year-old female who paces about the unit and talks a great deal, although without making a lot of sense. It is hard to tell whether she is actually delusional or simply manic. Mood is now angry, now happy, depending on the moment. Affect is wide ranging. Cognitive functions are derailed at the moment and she is bereft of insight and judgment. Fortunately suicidal and homicidal ideation, plan and intent are the farthest things from her mind. Vitals/I&O/Wt Last Vital Signs Temp 97.5 F L 03/19/20 05:59 Pulse 98 03/19/20 05:59 Resp 22 H 03/19/20 05:59 BP 162/100 03/19/20 05:59 Pulse Ox 98 03/19/20 05:59 03/18/20 03/19/20 03/19/20 23:59 07:59 15:59 Intake Total 236 Balance 236 Physical Exam Narrative: EXAM NARRATIVE: COMMON NORMALS: no acute distress and patient oriented x3 GENERAL APPEARANCE: disheveled HENMT: normocephalic and atraumatic Eye: Equal, round and reactive pupils present and EOMs intact bilaterally PUPIL: Yes Equal, round and reactive pupils present Neck/C-Spine: full ROM and supple Chest: normal inspection of the chest and normal palpation of entire chest wall Resp: normal respiratory effort, No retractions, No use of accessory muscles and clear to auscultation bilaterally AUSCULTATION: clear to auscultation bilaterally Cardio: regular rate, regular rhythm and No murmurs present (Cardio) RATE: regular rate RHYTHM: regular rhythm GI: Normal to inspection, nondistended, normoactive bowel sounds present, Soft to palpation, non-tender and no masses PALPATION: Yes Soft to palpation Extremity: normal to inspection and full ROM Neuro: patient oriented x3, moves all extremities and no focal motor deficits Skin: no rashes or lesions noted and no wounds GENERAL SKIN EXAM: no rashes or lesions noted. Involuntary Hold Information 96 Hour Hold: 96 Hour Involuntary Admission: Yes 96 Hour Hold Ending Date: 03/18/20 96 Hour Hold Ending Time: 12:25 Attestations NPU Medical Necessity Statement*: I anticipate 7-10 midnights Time Spent in Patient Care: Greater than 35 minutes It is very difficult to halfway house counselor with patient and very little time is successfully accomplished in that vein. Coding Level of Care Code Acute Content Development Specialist for Marianne Sadler
[2020-03-19 14:00] VITALS: BP 152/82; PULSE 115; RESP 18; TEMP 37.1; O2SAT 97
[2020-03-19] MEDS: simethicone 80 mg Chew PO (15:13)
--- NOTE | 2020-03-19 15:13 | PC.NURSE ---
PRN SIMETHICONE 80 MG TABLET GIVEN PO PER PT C/O GAS. WILL CONT TO MONITOR
[2020-03-19] MEDS: acetaminophen 325 mg Tablet 650 MG PO (20:56)
[2020-03-19] MEDS: hyDROXYzine 25 mg Capsule 50 MG PO (20:56)
[2020-03-19 22:00] VITALS: BP 158/101; PULSE 115; RESP 14; TEMP 36.8
[2020-03-20 06:00] VITALS: BP 161/112; PULSE 105; RESP 17; TEMP 36.3; O2SAT 96
[2020-03-20] MEDS: lithium carbonate 150 mg Capsule PO ×2 (08:02→17:21)
[2020-03-20] MEDS: chlorPROMazine 50 mg Tablet PO ×2 (08:02→17:50)
[2020-03-20] MEDS: diazePAM 5 mg Tablet PO ×4 (08:02→21:54)
[2020-03-20] MEDS: nicotine 21 mg Patch 1 PATCH TRANSDERMA (08:03)
--- NOTE | 2020-03-20 09:13 | PC.NURSE ---
Patient near nurses station addressing a coworker as ej. Says your on the bottom. Looking at my coworker calling her satan, screaming fuck you, you are on the bottom. God is on the top. My name is Lesley, Im not God. Pacing the hallways.
[2020-03-20] MEDS: chlorPROMazine 25 mg Tablet PO (10:19)
[2020-03-20] MEDS: hyDROXYzine 25 mg Capsule 50 MG PO ×2 (10:19→21:54)
--- NOTE | 2020-03-20 10:19 | PC.NURSE ---
Addendum entered by Onelia Lomax LPN 03/20/20 11:21: prn meds somewhat effective, mood somewhat more calm, able to be redirected Original Note: PRN VISTARIL & THORAZINE VISTARIL 50 MG GIVEN PO PER PT C/O STATED ANXIETY & THORAZINE 25 MG GIVEN PO PER PT BEHAVIOR OF INCREASED ANXIETY/AGITATION. YELLING, SCREAMING, CURSING AT NURSING STAFF. GETTING NAKED IN ROOMS, GOING INTO OTHER ROOMS THAT ARE NOT HER OWN. DIFFICULT TO BE REDIRECTED.
[2020-03-20 14:00] VITALS: BP 167/97; PULSE 108; RESP 20; TEMP 36.7; O2SAT 99
--- NOTE | 2020-03-20 14:37 | PC.NURSE ---
pt off floor for [address]
--- NOTE | 2020-03-20 16:01 | P.PN_ITS ---
Subjective NPU Subjective: Interval history: Lesley presented today very angry about having a 21-day hearing and even more angry when she was ruled against. She reports that she just needs to go as she can take care of herself and she knows what medications to take and that she will be fine. She continues to be intrusive, labile and difficult to redirect. My attempts to explain to her the importance of us finding medication that will assist her in being more capable in social interactions and more able to care for herself were ineffective as she stormed off cursing. Mental Status Exam MSE Comments: This is a overweight white female with adequate grooming limited dress and eye contact. No abnormal movements except for psychomotor agitation. Mostly cooperative with exam in mild distress. Speech was increased rate and volume. Mood described as fine affect energetic. Thought process organized. Thought content: Patient denied suicidal or homicidal ideation, there were no delusions reported but clear paranoid, persecutory and hyperreligious delusions were noted, she denied any auditory or visual hallucinations. Attention and concentration are limited and memory appears unreliable but none were formally tested. She is alert and oriented x person and place. Insight and judgment appear impaired. Impulse control is impaired. Vitals/I&O/Wt Last Vital Signs Temp 98.3 F 03/20/20 21:21 Pulse 107 H 03/20/20 21:21 Resp 21 H 03/20/20 21:21 BP 159/99 03/20/20 21:21 Pulse Ox 97 03/20/20 21:21 A&P Assessment and plan (1) Bipolar 1 disorder, manic, moderate: This is a 50-year-old white female with history of bipolar disorder and addiction who presents floridly psychotic and now on a 21-day hold. 1. Continue current medication. Except: I will review her chart and likely increase her lithium tomorrow. We will try to get collateral information for any historically effective medication regimen. 2. Encourage individual, group and milieu therapy. 3. Continue to 15-minute checks for safety. Status: Acute (2) Drug-induced psychotic disorder: Status: Acute (3) Acute psychosis: Status: Acute Involuntary Hold Information 96 Hour Hold: 96 Hour Involuntary Admission: Yes 96 Hour Hold Ending Date: 03/18/20 96 Hour Hold Ending Time: 12:25 Attestations NPU Medical Necessity Statement*: This is a 50-year-old white female with history of bipolar disorder and addiction who presents floridly psychotic and now on a 21-day hold. 1. Continue current medication. Except: I will review her chart and likely increase her lithium tomorrow. We will try to get collateral information for any historically effective medication regimen. 2. Encourage individual, group and milieu therapy. 3. Continue to 15-minute checks for safety. Coding Level of Care Code Acute Reconciliation Specialist for Marianne Statond Diagnoses Bipolar 1 disorder, manic, moderate F31.12 Drug-induced psychotic disorder F19.959 Acute psychosis F23
--- NOTE | 2020-03-20 16:32 | PC.NURSE ---
return to unit from court
[2020-03-20 21:21] VITALS: BP 159/99; PULSE 107; RESP 21; TEMP 36.8; O2SAT 97
[2020-03-20] MEDS: simethicone 80 mg Chew PO (21:54)
[2020-03-21 06:00] VITALS: BP 159/96; PULSE 92; RESP 16; TEMP 36.4; O2SAT 97
[2020-03-21] MEDS: simethicone 80 mg Chew PO ×2 (07:16→17:28)
[2020-03-21] MEDS: diazePAM 5 mg Tablet PO ×3 (07:54→20:46)
[2020-03-21] MEDS: lithium carbonate 150 mg Capsule PO (07:54)
[2020-03-21] MEDS: chlorPROMazine 50 mg Tablet PO ×2 (07:54→17:28)
[2020-03-21] MEDS: nicotine 2 mg Gum BUCCAL ×3 (09:03→19:44)
[2020-03-21] MEDS: LORazepam 2 mg Tablet PO (09:29)
--- NOTE | 2020-03-21 09:30 | PC.NURSE ---
PATIENT PACING UP AND DOWN THE HOANG YELLING AND CUSSING, EASILY REDIRECTED FOR A TIME, THEN STARTS YELLING AGAIN. NOTIFIED PHYSICIAN. ATIVAN 2MG PO ORDERED. GIVEN WITHOUT DIFFICULTY. WILL MONITOR FOR DRUG EFFECTIVENESS
--- NOTE | 2020-03-21 09:50 | PC.NURSE ---
Patient is cursing at other patients, taking other peoples belongings, and saying people are taking her money. She is looking for someone to press charges for stealing her identity. Her speech is rapid and she is rambling about being on the top or in the middle.
--- NOTE | 2020-03-21 13:53 | PC.SOCIAL ---
21 Day hold granted. If extension is needed it should be filed by 04/05/20, hold will be up on 04/09/20.
[2020-03-21 14:00] VITALS: BP 165/95; PULSE 99; RESP 20; TEMP 36.4; O2SAT 98
[2020-03-21] MEDS: acetaminophen 325 mg Tablet 650 MG PO (14:41)
[2020-03-21] MEDS: chlorPROMazine 25 mg Tablet PO ×2 (15:26→20:46)
--- NOTE | 2020-03-21 15:27 | PC.NURSE ---
PRN Thorazine 25 PO given for anxiety
--- NOTE | 2020-03-21 15:36 | PM.NPN ---
Subjective NPU Subjective: Interval history: Lesley presents today reporting that she is ready to go home and I does need to sign the discharge papers. On multiple occasions he approached the window and gave some story as to why her staying here is a problem 1 time she rambled for about 7 minutes about previously being in custodial and that this is like present here and often screaming at the top of her lungs. She did require a couple of as needed medications to help her stop the aggressive outbursts. We discussed the risks benefits and alternatives of increasing the lithium and she understood her release. Stand and agreed to the increase. Mental Status Exam MSE Comments: This is a overweight white female with adequate grooming limited dress and eye contact. No abnormal movements except for psychomotor agitation. Mostly cooperative with exam in mild to moderate distress. Speech was increased rate and volume. Mood described as OK affect energetic and irritable. Thought process organized. Thought content: Patient denied suicidal or homicidal ideation, there were no delusions reported but clear paranoid, persecutory and hyperreligious delusions were noted, she denied any auditory or visual hallucinations. Attention and concentration are limited and memory appears unreliable but none were formally tested. She is alert and oriented x person and place. Insight and judgment appear impaired. Impulse control is impaired. Vitals/I&O/Wt Last Vital Signs Temp 97.5 F L 03/21/20 14:00 Pulse 99 03/21/20 14:00 Resp 20 H 03/21/20 14:00 BP 165/95 03/21/20 14:00 Pulse Ox 98 03/21/20 14:00 A&P Additional A&P Information (1) Bipolar 1 disorder, manic, moderate: This is a 50-year-old white female with history of bipolar disorder and addiction who presents floridly psychotic and now on a 21-day hold. 1. Continue current medication. Except: Increase lithium to 300 mg po bid. 2. Encourage individual, group and milieu therapy. 3. Continue to 15-minute checks for safety. (2) Drug-induced psychotic disorder: (3) Acute psychosis: Involuntary Hold Information 96 Hour Hold: 96 Hour Involuntary Admission: Yes 96 Hour Hold Ending Date: 03/18/20 96 Hour Hold Ending Time: 12:25 Attestations NPU Medical Necessity Statement*: (1) Bipolar 1 disorder, manic, moderate: This is a 50-year-old white female with history of bipolar disorder and addiction who presents floridly psychotic and now on a 21-day hold. 1. Continue current medication. Except: I will review her chart and likely increase her lithium tomorrow. We will try to get collateral information for any historically effective medication regimen. 2. Encourage individual, group and milieu therapy. 3. Continue to 15-minute checks for safety. (2) Drug-induced psychotic disorder: (3) Acute psychosis: Coding Level of Care Code Acute Equipment Records Supervisor for Marianne Sadler
[2020-03-21] MEDS: lithium carbonate 150 mg Capsule 300 MG PO (18:38)
[2020-03-21] MEDS: hyDROXYzine 25 mg Capsule 50 MG PO (20:47)
[2020-03-21] MEDS: OLANZapine 5 mg ODT PO (20:48)
[2020-03-21 22:00] VITALS: BP 158/96; PULSE 98; RESP 18; TEMP 36.7; O2SAT 98
[2020-03-22] MEDS: OLANZapine 5 mg ODT PO ×3 (02:03→23:11)
[2020-03-22] MEDS: chlorPROMazine 25 mg Tablet PO ×3 (02:03→23:10)
[2020-03-22] MEDS: simethicone 80 mg Chew PO (02:03)
[2020-03-22 06:00] VITALS: BP 153/93; PULSE 100; RESP 18; TEMP 36.8; O2SAT 100
[2020-03-22] MEDS: chlorPROMazine 50 mg Tablet PO ×2 (09:30→17:14)
[2020-03-22] MEDS: lithium carbonate 150 mg Capsule 300 MG PO (09:31)
[2020-03-22] MEDS: diazePAM 5 mg Tablet PO ×3 (09:31→23:08)
[2020-03-22] MEDS: nicotine 2 mg Gum BUCCAL ×6 (10:35→23:14)
[2020-03-22] MEDS: OLANZapine 10 mg VIAL IM (10:35)
--- NOTE | 2020-03-22 10:35 | PC.NURSE ---
PRN ZYPREXA ZYPREXA 10MG IM TO RIGHT DORSOGLUTEAL FOR SEVERE AGITATION. PATIENT IS YELLING AND AGITATION ABOUT BEING HERE AND TALKING ABOUT BEING HELD CAPTIVE. WILL CONTINUE TO MONITOR FOR MEDICATION EFFECTIVENESS.
--- NOTE | 2020-03-22 11:30 | PC.NURSE ---
PRN ZYPREXA FOLLOW UP MEDICATION EFFECTIVE. PATIENT SITTING IN HER ROOM QUIETLY.
--- NOTE | 2020-03-22 13:10 | P.PN_ITS ---
Subjective NPU Subjective: Interval history: The patient presents today reporting that she wants to go home. This is the first thing she says every day and then spends most of the day in cursing rants and referring to me as doctor, and calling herself honky with cuss words, and things of that nature. She is very intrusive, often gets in peoples? personal space, leading to conflicts that do not get out of control mostly because of how small she is, and people realize that she is not well. She is unable to be redirected. She denied any side effects to the increase in the [place] at this point. We discussed the risks, benefits, and alternatives of increasing the [place] again to 900 mg total and she reports she understands and agrees to proceed as is documented in this note. Mental Status Exam MSE Comments: This is a overweight white female with adequate grooming limited dress and eye contact. No abnormal movements except for psychomotor agitation. Mostly cooperative with exam in mild to moderate distress. Speech was increased rate and volume. Mood described as OK affect energetic and irritable. Thought process organized. Thought content: Patient denied suicidal or homicidal ideation, there were no delusions reported but clear paranoid, persecutory and hyperreligious delusions were noted, she denied any auditory or visual hallucinations. Attention and concentration are limited and memory appears unreliable but none were formally tested. She is alert and oriented x person and place. Insight and judgment appear impaired. Impulse control is impaired. Vitals/I&O/Wt Last Vital Signs Temp 97.8 F 03/22/20 06:00 Pulse 115 H 03/22/20 06:00 Resp 18 03/22/20 06:00 BP 167/105 03/22/20 06:00 Pulse Ox 98 03/22/20 06:00 Weight last 48 hrs Weight 60.781 kg A&P Additional A&P Information (1) Bipolar 1 disorder, manic, moderate: This is a 50-year-old white female with history of bipolar disorder and addiction who presents floridly psychotic and now on a 21-day hold. 1. Continue current medication. Except: Increase lithium to 300 mg po tid. 2. Encourage individual, group and milieu therapy. 3. Continue to 15-minute checks for safety. (2) Drug-induced psychotic disorder: (3) Acute psychosis: Involuntary Hold Information 96 Hour Hold: 96 Hour Involuntary Admission: Yes 96 Hour Hold Ending Date: 03/18/20 96 Hour Hold Ending Time: 12:25 Attestations NPU Medical Necessity Statement*: Inpatient hospitalization is medically necessary and the clinically appropriate intervention at this time.Likely length of stay 5-7 days. We will monitor medications and adjust as indicated. Coding Level of Care Code Acute Store Promoter for Marianne Sadler
--- NOTE | 2020-03-22 13:16 | PC.NURSE ---
Addendum entered by Merna Yang LPN 03/22/20 14:22: SOMEWHAT EFFECTIVE. PATIENT IS STILL LABILE BUT PATIENT ISNT FIGHTING WITH ANY PATIENTS. Original Note: PRN ZYPREXA ZYDIS AND PRN THORAZINE ZYPREXA ZYDIS 5MG PO AND THORAZINE 25MG PO FOR AGITATION/ANXIETY. PATIENT YELLING AND SCREAMING AT OTHER PATIENTS. WILL CONTINUE TO MONITOR FOR MEDICATION EFFECTIVENESS.
[2020-03-22 14:00] VITALS: BP 163/100; PULSE 107; RESP 18; TEMP 36.7; O2SAT 98
[2020-03-22] MEDS: lithium carbonate 300 mg Capsule PO (15:51)
[2020-03-22 22:00] VITALS: BP 167/105; PULSE 115; RESP 18; TEMP 36.6; O2SAT 98
[2020-03-22] MEDS: hyDROXYzine 25 mg Capsule 50 MG PO (23:11)
[2020-03-23 06:00] VITALS: BP 163/99; PULSE 101; RESP 18; TEMP 36.8; O2SAT 97
--- NOTE | 2020-03-23 08:20 | PC.NURSE ---
PT BEHAVIOR; CLIENT REMAINS PSYCHOTIC AND DELUSIONAL WITH AN IRRITABLE EDGE. CLIENT REMAINS VERY INTRUSIVE WITH OTHER PATIENTS ON THE UNIT. CLIENT REQUIRES FREQUENT REDIRECTION FROM STAFF.
[2020-03-23] MEDS: chlorPROMazine 50 mg Tablet PO ×2 (08:42→17:28)
[2020-03-23] MEDS: diazePAM 5 mg Tablet PO ×3 (08:42→21:23)
[2020-03-23] MEDS: lithium carbonate 300 mg Capsule PO ×3 (08:42→21:23)
[2020-03-23] MEDS: nicotine 2 mg Gum BUCCAL ×2 (10:36→14:45)
[2020-03-23] MEDS: OLANZapine 10 mg VIAL IM ×2 (10:49→18:17)
--- NOTE | 2020-03-23 10:54 | PC.NURSE ---
Patient behavior Patient walking the halls and being intrusive with other patients. Given zyprexa IM for agitation.
--- NOTE | 2020-03-23 12:49 | PM.NPN ---
Subjective NPU Subjective: Interval history: Lesley presents today continuing to be overly aggressive and irritable. She is saying off the wall comments, and just absolute stream of consciousness. We just increased her [place] yesterday, so we are hoping eventually the [place] catches up with her, but so far that has not been the case. She had been on 150 mg twice a day, which we increased to 600 mg a couple of days ago, and now we are up to 900 mg. She continues to be intrusive, have no filter, and just says whatever comes to mind, whether it is sexually, racially, etc. She is non-redirectable. She denies any issues, and says she is feeling fine, and just wants to be discharged. Mental Status Exam MSE Comments: This is a overweight white female with adequate grooming limited dress and eye contact. No abnormal movements except for psychomotor agitation. Mostly cooperative with exam in mild to moderate distress. Speech was increased rate and volume. Mood described as good, affect energetic and irritable. Thought process organized. Thought content: Patient denied suicidal or homicidal ideation, there were no delusions reported but clear paranoid, persecutory and hyperreligious delusions were noted, she denied any auditory or visual hallucinations. Attention and concentration are limited and memory appears unreliable but none were formally tested. She is alert and oriented x person and place. Insight and judgment appear impaired. Impulse control is impaired. Vitals/I&O/Wt Last Vital Signs Temp 98.2 F 03/23/20 06:00 Pulse 101 H 03/23/20 06:00 Resp 18 03/23/20 06:00 BP 163/99 03/23/20 06:00 Pulse Ox 97 03/23/20 06:00 Weight last 48 hrs Weight 60.781 kg A&P Additional A&P Information (1) Bipolar 1 disorder, manic, moderate: This is a 50-year-old white female with history of bipolar disorder and addiction who presents floridly psychotic and now on a 21-day hold. 1. Continue current medication. 2. Encourage individual, group and milieu therapy. 3. Continue to 15-minute checks for safety. (2) Drug-induced psychotic disorder: (3) Acute psychosis: Involuntary Hold Information 96 Hour Hold: 96 Hour Involuntary Admission: Yes 96 Hour Hold Ending Date: 03/18/20 96 Hour Hold Ending Time: 12:25 Attestations NPU Medical Necessity Statement*: Inpatient hospitalization is medically necessary and the clinically appropriate intervention at this time.Likely length of stay 5-7 days. We will monitor medications and adjust as indicated. Coding Level of Care Code Acute Solar Photovoltaic Crew Lead for Marianne Sadler
[2020-03-23 13:39] VITALS: BP 139/84; PULSE 108; RESP 18; TEMP 36.9; O2SAT 98
[2020-03-23] MEDS: chlorPROMazine 25 mg Tablet PO ×2 (14:44→21:23)
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
[2020-03-23 20:14] VITALS: BP 186/118; PULSE 111; RESP 19; TEMP 36.7; O2SAT 95
--- NOTE | 2020-03-23 21:46 | PC.NURSE ---
PRN THORAZINE THORAZINE 25 MG PO ADMINISTERED FOR INCREASING AGITATION.
[2020-03-24 04:57] VITALS: BP 152/102; PULSE 87; RESP 19; O2SAT 96
[2020-03-24] MEDS: diazePAM 5 mg Tablet PO ×3 (09:16→20:24)
[2020-03-24] MEDS: OLANZapine 10 mg VIAL IM (09:42)
--- NOTE | 2020-03-24 09:42 | PC.NURSE ---
Addendum entered by Merna Yang LPN 03/24/20 11:03: SOMEWHAT EFFECTIVE. PATIENT IS STILL DELUSION BUT ISNT YELLING AND CALLING STAFF NAMES. Original Note: PRN ZYPREXA ZYPREXA 10MG IM TO RIGHT DELTOID. PATIENT REFUSED SCHEDULED MEDICATION. DOCTOR ORDERED A ZYPREXA INJECTION IF PATIENT REFUSES SCHEDULED MEDICATION. STAFF TRIED MULTIPLE TIMES TO GET PATIENT TO COOPERATE AND TAKE INJECTION. STAFF PUT PATIENT IN S.A.F.E HOLD WHILE PATIENT WAS SITTING ON BENCH BY THE PATIENT PHONE. AFTER INJECTION PATIENT WAS COOPERATIVE AND THANKED STAFF. WILL CONTINUE TO MONITOR FOR MEDICATION EFFECTIVENESS.
--- NOTE | 2020-03-24 10:25 | PC.NURSE ---
Patient Behavior Patient was acting psychotic. Intrusive to other patients, yelling. Physician ordered 10 mg im zyprexa. Patient refused after multiple options were given. With there being a [address], patient will need to be restrained to give medication if refusing. Security was present with staff and the patient was placed in a safe hold so that the medication nurse could administer the im injection. Patient was in a safe hold less that 30 seconds and was calm and pleasant afterwards.
[2020-03-24 14:00] VITALS: BP 185/93; PULSE 105; RESP 20; TEMP 36.6; O2SAT 99
[2020-03-24] MEDS: lithium carbonate 300 mg Capsule PO ×2 (14:42→20:24)
--- NOTE | 2020-03-24 14:49 | PM.NPN ---
Subjective NPU Subjective: Interval history: The patient presents today continuing to really be out of sorts and confused. She continues to get prn medication without there being much impact, and without there being a long impact from that medication. Today she walked up to be and made comments about my eyes and how attractive I was, and then asked whether we were going to have sex, or if we weren?t going to have sex because we are in the hospital. And she said that with no change in her tone and no hesitation. She received prn Zyprexa for medication refusal, and continues to not show much signs of the increase in the [place]. Mental Status Exam MSE Comments: This is a overweight white female with adequate grooming limited dress and eye contact. No abnormal movements except for psychomotor agitation. Mostly cooperative with exam in mild to moderate distress. Speech was increased rate and volume. Mood described as fine, can I go?, affect energetic and irritable. Thought process organized. Thought content: Patient denied suicidal or homicidal ideation, there were no delusions reported but clear paranoid, persecutory and hyperreligious delusions were noted, she denied any auditory or visual hallucinations. Attention and concentration are limited and memory appears unreliable but none were formally tested. She is alert and oriented x person and place. Insight and judgment appear impaired. Impulse control is impaired. Vitals/I&O/Wt Last Vital Signs Temp 97.4 F L 03/24/20 19:58 Pulse 105 H 03/24/20 19:58 Resp 22 H 03/24/20 19:58 BP 176/104 03/24/20 19:58 Pulse Ox 99 03/24/20 19:58 Weight last 48 hrs Weight 60.781 kg A&P Additional A&P Information (1) Bipolar 1 disorder, manic, moderate: This is a 50-year-old white female with history of bipolar disorder and addiction who presents floridly psychotic and now on a 21-day hold. 1. Continue current medication. 2. Encourage individual, group and milieu therapy. 3. Continue to 15-minute checks for safety. (2) Drug-induced psychotic disorder: (3) Acute psychosis: Involuntary Hold Information 96 Hour Hold: 96 Hour Involuntary Admission: Yes 96 Hour Hold Ending Date: 03/18/20 96 Hour Hold Ending Time: 12:25 Attestations NPU Medical Necessity Statement*: Inpatient hospitalization is medically necessary and the clinically appropriate intervention at this time.Likely length of stay 5-7 days. We will monitor medications and adjust as indicated. Coding Level of Care Code Acute Instructional Technologist for Marianne Sadler
[2020-03-24] MEDS: chlorPROMazine 50 mg Tablet PO (17:18)
[2020-03-24 19:58] VITALS: BP 176/104; PULSE 105; RESP 22; TEMP 36.3; O2SAT 99
[2020-03-24] MEDS: chlorPROMazine 25 mg Tablet PO (20:24)
--- NOTE | 2020-03-24 20:24 | PC.NURSE ---
PRN THORAZINE THORAZINE 25 MG PO ADMINISTERED FOR INCREASING AGITATION.
[2020-03-24] MEDS: nicotine 2 mg Gum BUCCAL ×2 (20:37→22:58)
[2020-03-24] MEDS: OLANZapine 5 mg ODT PO (22:58)
[2020-03-25] MEDS: LORazepam 2 mg/mL INJ 1 mL IM ×2 (02:03→09:15)
--- NOTE | 2020-03-25 02:03 | PC.NURSE ---
PRN ATIVAN PT BECOMING INCREASINGLY AGITATED AND YELLING IN THE [place]. ATIVAN 2MG ADMINISTERED LEFT DELTOID. WILL MONITOR FOR MEDICATION EFFECTIVENESS.
[2020-03-25 06:00] VITALS: BP 157/89; PULSE 95; RESP 22; TEMP 36.6; O2SAT 97
[2020-03-25] MEDS: diazePAM 5 mg Tablet PO ×3 (08:22→22:59)
--- NOTE | 2020-03-25 09:02 | PC.NURSE ---
refused scheduled lithium and thorazine this morning
[2020-03-25] MEDS: OLANZapine 10 mg VIAL IM (09:15)
--- NOTE | 2020-03-25 09:16 | PC.NURSE ---
Addendum entered by Onelia Lomax LPN 03/25/20 10:42: prn meds effective no further c/o anxiety/agitation currently, mood much more calm Original Note: PRN ATIVAN & PRN ZYPREXA ATIVAN 2 MG GIVEN IM AND ZYPREXA 10 MG GIVEN IM PER PT BEHAVIOR OF INCREASED ANXIETY,AGITATION. PT PACING HALLWAY, CURSING AND MUMBLING TO HERSELF. PT STATEDE I'M READY TO LEAVE NOW, SATAN HAS LEFT. I NEED THE FUCK OUT. REFUSED SCHEDULED THORAZINE & LITHIUM. DOCTOR JAYANT CONTACTED, ORDERED PT HAVE PRN INJECTIONS. SECURITY CALLED TO UNIT. PT TOOK SHOTS AFTER MUCH STAFF ENCOURAGEMENT. WILL CONT TO MONITOR BEHAVIOR.
[2020-03-25] MEDS: nicotine 2 mg Gum BUCCAL ×2 (10:16→22:59)
[2020-03-25 13:44] VITALS: BP 157/96; PULSE 98; RESP 18; TEMP 36.8; O2SAT 98
[2020-03-25] MEDS: lithium carbonate 300 mg Capsule PO ×2 (14:21→22:59)
[2020-03-25 15:02] LABS: Lithium 0.3 mmol/L (0.6-1.2)
--- NOTE | 2020-03-25 17:00 | P.PN_ITS ---
Subjective NPU Subjective: Interval history: Lesley presents today, much like yesterday, continuing to be intrusive with a little more irritability today. After we had a conversation, and I walked back into the nurse?s station, she could be hears talking to another staff member about her medication and when would she be discharged, and they explained that she could be discharged when this engineering writer agreed to discharge her. She went on to say that, he is a nigger, how could he make any decisions or know what to do, and why would you listen to him. She is never that way to me directly and, according to staff, there have been a couple of other times that she has gone to that extreme. Other times she has mostly just called me -Belgian or brought attention to the fact that I am ?colored.? She got additional IM medication today, but she was able to be talked into taking a dose later in the day. But, at this point, with regular taking of this [place] 900 mg, she is really not showing much impact. She is a little less energetic, but still continues with her intrusive behaviors. Mental Status Exam MSE Comments: This is a overweight white female with adequate grooming limited dress and eye contact. No abnormal movements except for psychomotor agitation. Mostly cooperative with exam in mild to moderate distress. Speech was increased rate and volume. Mood described as good, affect energetic and irritable. Thought process organized. Thought content: Patient denied suicidal or homicidal ideation, there were no delusions reported but clear paranoid, persecutory and hyperreligious delusions were noted, she denied any auditory or visual hallucinations. Attention and concentration are limited and memory appears unreliable but none were formally tested. She is alert and oriented x person and place. Insight and judgment appear impaired. Impulse control is impaired. Vitals/I&O/Wt Last Vital Signs Temp 98.5 F 03/25/20 19:59 Pulse 109 H 03/25/20 19:59 Resp 16 03/25/20 19:59 BP 152/110 03/25/20 19:59 Pulse Ox 97 03/25/20 19:59 A&P Additional A&P Information (1) Bipolar 1 disorder, manic, moderate: This is a 50-year-old white female with history of bipolar disorder and addiction who presents floridly psychotic and now on a 21-day hold. 1. Continue current medication. Will consider adding Invega and discontinuing the Thorazine tomorrow. 2. Encourage individual, group and milieu therapy. 3. Continue to 15-minute checks for safety. (2) Drug-induced psychotic disorder: (3) Acute psychosis: Involuntary Hold Information 96 Hour Hold: 96 Hour Involuntary Admission: Yes 96 Hour Hold Ending Date: 03/18/20 96 Hour Hold Ending Time: 12:25 Attestations NPU Medical Necessity Statement*: Inpatient hospitalization is medically necessary and the clinically appropriate intervention at this time.Likely length of stay 5-7 days. We will monitor medications and adjust as indicated. Coding Level of Care Code Acute Bacteriologist Industrial for Marianne Sadler
[2020-03-25] MEDS: chlorPROMazine 50 mg Tablet PO (17:18)
[2020-03-25 19:59] VITALS: BP 152/110; PULSE 109; RESP 16; TEMP 36.9; O2SAT 97
[2020-03-25] MEDS: hyDROXYzine 25 mg Capsule 50 MG PO (22:59)
[2020-03-26] MEDS: OLANZapine 5 mg ODT PO ×2 (04:17→23:33)
[2020-03-26] MEDS: nicotine 2 mg Gum BUCCAL ×3 (04:17→17:30)
--- NOTE | 2020-03-26 04:18 | PC.NURSE ---
PRN ZYPREXA ZYDIS PT BECOMING INCREASINGLY AGITATED AND PACING THE HALLS. ZYPREXA ZYDIS 5 MG SUBLINGUAL ADMINISTERED. WILL MONITOR FOR MEDICATION EFFECTIVENESS.
[2020-03-26 06:00] VITALS: BP 156/106; PULSE 97; RESP 22; TEMP 36.7; O2SAT 99
[2020-03-26] MEDS: lithium carbonate 300 mg Capsule 600 MG PO ×2 (08:52→17:09)
[2020-03-26] MEDS: diazePAM 5 mg Tablet PO ×3 (08:52→23:33)
[2020-03-26] MEDS: paliperidone ER 6 mg Tablet PO (08:52)
--- NOTE | 2020-03-26 09:37 | PM.NPN ---
Subjective NPU Subjective: Interval history: chago presented to the unit continuing to focus on this idea of being on the bottom . She seemed to be a little less focused on racial and sexual topics. Her lithium continues to be low. I reviewed with her that we would be increasing her lithium. He seems to be a little less energetic. Still mostly non-redirectable. He is eating fine sleeping okay but still getting really early. Mental Status Exam MSE Comments: This is a overweight white female with adequate grooming, dress and eye contact. No abnormal movements except for psychomotor agitation. Mostly cooperative with exam in mild to moderate distress. Speech was increased rate and volume. Mood described as pretty good, affect energetic and irritable. Thought process organized. Thought content: Patient denied suicidal or homicidal ideation, there were no delusions reported but clear paranoid, persecutory and hyperreligious delusions were noted, she denied any auditory or visual hallucinations. Attention and concentration are limited and memory appears unreliable but none were formally tested. She is alert and oriented x person and place. Insight and judgment appear impaired. Impulse control is impaired. Vitals/I&O/Wt Last Vital Signs Temp 98.1 F 03/26/20 06:00 Pulse 97 03/26/20 06:00 Resp 22 H 03/26/20 06:00 BP 156/106 03/26/20 06:00 Pulse Ox 99 03/26/20 06:00 A&P Additional A&P Information (1) Bipolar 1 disorder, manic, moderate: This is a 50-year-old white female with history of bipolar disorder and addiction who presents floridly psychotic and now on a 21-day hold. 1. Continue current medication. Increase lithium to 600 mg by mouth twice a day. 2. Encourage individual, group and milieu therapy. 3. Continue to 15-minute checks for safety. (2) Drug-induced psychotic disorder: (3) Acute psychosis: Involuntary Hold Information 96 Hour Hold: 96 Hour Involuntary Admission: Yes 96 Hour Hold Ending Date: 03/18/20 96 Hour Hold Ending Time: 12:25 Attestations NPU Medical Necessity Statement*: Inpatient hospitalization is medically necessary and the clinically appropriate intervention at this time.Likely length of stay 5-7 days. We will monitor medications and adjust as indicated. Coding Level of Care Code Acute Pre Owned Sales Consultant for Marianne Sadler
[2020-03-26 14:00] VITALS: BP 173/96; PULSE 109; RESP 22; TEMP 36.7; O2SAT 97
[2020-03-26 21:17] VITALS: BP 162/95; PULSE 105; RESP 19; TEMP 36.6; O2SAT 98
[2020-03-26] MEDS: hyDROXYzine 25 mg Capsule 50 MG PO (23:33)
[2020-03-27 06:00] VITALS: BP 164/108; PULSE 101; RESP 18; TEMP 36.9; O2SAT 98
[2020-03-27] MEDS: diazePAM 5 mg Tablet PO ×3 (09:41→21:19)
[2020-03-27] MEDS: paliperidone ER 6 mg Tablet PO (09:41)
[2020-03-27] MEDS: lithium carbonate 300 mg Capsule 600 MG PO ×2 (09:41→17:48)
[2020-03-27] MEDS: nicotine 2 mg Gum BUCCAL ×3 (10:32→17:49)
--- NOTE | 2020-03-27 12:37 | P.PN_ITS ---
Subjective NPU Subjective: Interval history: Lesley presented to today demonstrating some decreased activation, but continued to be quite intrusive and all over the place in regards to her talking/speaking. We continue to see patients in their rooms, which is what we have done since COVID considerations have occurred. And she often has to be directed away from someone?s room and away from starting a conversation and walking into someone else?s room while a conversation is going on with a patient from that room. That being said, she appeared significantly calmer and was not as nasty and aggressive in the comments that she made. She was often apologetic when she realized that she had overstepped her boundaries. She appears to be eating well and still rising fairly early. She appears to be responding well to the Invega. We discussed considering the injection in the next couple of days. Mental Status Exam MSE Comments: This is a overweight white female with adequate grooming, dress and eye contact. No abnormal movements except for improving psychomotor agitation. Mostly cooperative with exam in much less distress. Speech was more normal rate and volume. Mood described as I feel good, affect less energetic and irritable. Thought process organized. Thought content: Patient denied suicidal or homicidal ideation, there were no delusions reported but clear paranoid, persecutory and hyperreligious delusions were noted, but are less pervasive, she denied any auditory or visual hallucinations. Attention and concentration are limited and memory appears unreliable but none were formally tested. She is alert and oriented x person and place. Insight and judgment appear impaired, but improving. Impulse control is impaired. Vitals/I&O/Wt Last Vital Signs Temp 98.4 F 03/27/20 06:00 Pulse 101 H 03/27/20 06:00 Resp 18 03/27/20 06:00 BP 168/108 03/27/20 06:00 Pulse Ox 98 03/27/20 06:00 A&P Additional A&P Information (1) Bipolar 1 disorder, manic, moderate: This is a 50-year-old white female with history of bipolar disorder and addiction who presents floridly psychotic and now on a 21-day hold. 1. Continue current medication. 2. Encourage individual, group and milieu therapy. 3. Continue to 15-minute checks for safety. (2) Drug-induced psychotic disorder: (3) Acute psychosis: Involuntary Hold Information 96 Hour Hold: 96 Hour Involuntary Admission: Yes 96 Hour Hold Ending Date: 03/18/20 96 Hour Hold Ending Time: 12:25 Attestations NPU Medical Necessity Statement*: Inpatient hospitalization is medically necessary and the clinically appropriate intervention at this time.Likely length of stay 5-7 days. We will monitor medications and adjust as indicated. Coding Level of Care Code Acute Infertility Medical Assistant for Marianne Sadler
[2020-03-27 14:00] VITALS: BP 161/99; PULSE 108; RESP 18; TEMP 36.7; O2SAT 97
[2020-03-27 20:33] VITALS: BP 83/58; PULSE 106; RESP 18; TEMP 36.6; O2SAT 98
[2020-03-27] MEDS: hyDROXYzine 25 mg Capsule 50 MG PO (21:19)
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
[2020-03-28 06:00] VITALS: BP 153/94; PULSE 102; RESP 18; TEMP 36.6; O2SAT 97
[2020-03-28] MEDS: metoprolol succinate ER (24 HR) 25 mg Tablet PO ×2 (08:44→17:47)
[2020-03-28] MEDS: diazePAM 5 mg Tablet PO ×3 (08:44→20:14)
[2020-03-28] MEDS: paliperidone ER 6 mg Tablet PO (09:04)
[2020-03-28] MEDS: lithium carbonate 300 mg Capsule 600 MG PO ×2 (09:04→17:47)
[2020-03-28] MEDS: acetaminophen 325 mg Tablet 650 MG PO (10:48)
[2020-03-28] MEDS: nicotine 2 mg Gum BUCCAL ×2 (10:57→20:14)
[2020-03-28 14:00] VITALS: BP 176/91; PULSE 102; RESP 18; TEMP 36.5; O2SAT 99
--- NOTE | 2020-03-28 15:16 | PC.NURSE ---
Addendum entered by Cristina Davila RN 03/28/20 15:43: Called Dr Shyam Cochran to advise of current blood pressure. He changed the order to Metoprolol Succinate ER 25 PO BID. Original Note: Patient started taking metoprolol succinate ER 25 MG PO daily Her BP is 176/91 and ID [id number]. @1520 today.
--- NOTE | 2020-03-28 16:57 | P.PN_ITS ---
Subjective NPU Subjective: Interval history: Lesley presents today reporting that she is feeling calmer and for the first time from the time she has been here, that would seem accurate. She is seeming to respond well to the Invega and is having less aggressive verbal outbursts or cursing. She is somewhat less intrusive in going to peoples? rooms. She reports that she is eating better and sleeping fine. She denies any side effects to the medications. She is not going on about being in the bottom today. She is not spending time randomly yelling this science writer?s name and is doing okay given the current acuity of the unit. She is eating okay and sleeping better, still early rising. Mental Status Exam MSE Comments: This is a overweight white female with adequate grooming, dress and eye contact. No abnormal movements except for improving psychomotor agitation. Mostly cooperative with exam in no acute distress. Speech was more normal rate and volume. Mood described as I'm better, affect less energetic and irritable. Thought process organized. Thought content: Patient denied suicidal or homicidal ideation, there were no delusions reported but clear paranoid, persecutory and hyperreligious delusions were noted, but are less pervasive, she denied any auditory or visual hallucinations. Attention and concentration are limited and memory appears unreliable but none were formally tested. She is alert and oriented x person and place. Insight and judgment appear impaired, but improving. Impulse control is impaired, but improving. Vitals/I&O/Wt Last Vital Signs Temp 97.7 F 03/28/20 14:00 Pulse 102 H 03/28/20 14:00 Resp 18 03/28/20 14:00 BP 176/91 03/28/20 14:00 Pulse Ox 99 03/28/20 14:00 A&P Additional A&P Information (1) Bipolar 1 disorder, manic, moderate: This is a 50-year-old white female with history of bipolar disorder and addiction who presents floridly psychotic and now on a 21-day hold. 1. Continue current medication. demonstrating good response to invega will give injection this weekend. 2. Encourage individual, group and milieu therapy. 3. Continue to 15-minute checks for safety. (2) Drug-induced psychotic disorder: (3) Acute psychosis: Involuntary Hold Information 96 Hour Hold: 96 Hour Involuntary Admission: Yes 96 Hour Hold Ending Date: 03/18/20 96 Hour Hold Ending Time: 12:25 Attestations NPU Medical Necessity Statement*: Inpatient hospitalization is medically necessary and the clinically appropriate intervention at this time.Likely length of stay 5-7 days. We will monitor medications and adjust as indicated. Coding Level of Care Code Acute Digital Publishing Specialist for Marianne Sadler
[2020-03-28] MEDS: hyDROXYzine 25 mg Capsule 50 MG PO (20:14)
[2020-03-28 20:31] VITALS: BP 167/105; PULSE 98; RESP 16; TEMP 36.2; O2SAT 98
--- NOTE | 2020-03-28 21:09 | PC.NURSE ---
pt given scheduled valium, and PRN vistaril and nicorette gum per request.
[2020-03-28] MEDS: simethicone 80 mg Chew PO (21:59)
[2020-03-28 22:00] VITALS: BP 167/105; PULSE 98; RESP 98; TEMP 36.2; O2SAT 98
[2020-03-29 06:00] VITALS: BP 169/104; PULSE 87; RESP 16; TEMP 36.4; O2SAT 98
[2020-03-29] MEDS: lithium carbonate 300 mg Capsule 600 MG PO ×2 (08:35→19:15)
[2020-03-29] MEDS: paliperidone ER 6 mg Tablet PO (08:35)
[2020-03-29] MEDS: diazePAM 5 mg Tablet PO ×3 (08:35→21:33)
[2020-03-29] MEDS: nicotine 2 mg Gum BUCCAL (08:41)
[2020-03-29] MEDS: metoprolol succinate ER (24 HR) 25 mg Tablet PO (10:02)
[2020-03-29 14:00] VITALS: BP 103/82; PULSE 76; RESP 18; TEMP 37.1
--- NOTE | 2020-03-29 15:23 | P.PN_ITS ---
Subjective NPU Subjective: Interval history: The patient presents today much less activated. She was able to sit down and not move for a brief period of time, and still was stream of consciousness, to some degree, with what she saw. But she was at least able to articulate that she wants to be discharged, which she has many other times, but this was a more organized request. We discussed the possibility of her getting an injection, which she was not sure she wanted to do but, ultimately, she was more engaged and less invasive and intrusive, but still seeming cognitively disjointed. But she reports that she thinks she is doing really well. Mental Status Exam MSE Comments: This is a overweight white female with adequate grooming, dress and eye contact. No abnormal movements except for improving psychomotor agitation. Cooperative with exam in no acute distress. Speech was more normal rate and volume. Mood described as good, affect slightly subdued. Thought process organized. Thought content: Patient denied suicidal or homicidal ideation, there were no delusions reported but and less paranoid, persecutory delusions were noted, and are less pervasive, she denied any auditory or visual hallucinations. Attention and concentration are improved and memory appears unreliable but none were formally tested. She is alert and oriented x person and place. Insight and judgment appear impaired, but improving. Impulse control is impaired, but improving. Vitals/I&O/Wt Last Vital Signs Temp 97.5 F L 03/29/20 06:00 Pulse 87 03/29/20 06:00 Resp 16 03/29/20 06:00 BP 169/104 03/29/20 06:00 Pulse Ox 98 03/29/20 06:00 03/29/20 03/30/20 03/30/20 22:59 06:59 14:59 Intake Total 236 / 236 Balance 236 / 236 Weight last 48 hrs Weight A&P Additional A&P Information (1) Bipolar 1 disorder, manic, moderate: This is a 50-year-old white female with history of bipolar disorder and addiction who presents floridly psychotic and now on a 21-day hold. 1. Continue current medication. demonstrating good response to invega will give injection this weekend. Increase Metoprolol to 25 mg po bid. 2. Encourage individual, group and milieu therapy. 3. Continue to 15-minute checks for safety. (2) Drug-induced psychotic disorder: (3) Acute psychosis: Involuntary Hold Information 96 Hour Hold: 96 Hour Involuntary Admission: Yes 96 Hour Hold Ending Date: 03/18/20 96 Hour Hold Ending Time: 12:25 Attestations NPU Medical Necessity Statement*: Inpatient hospitalization is medically necessary and the clinically appropriate intervention at this time.Likely length of stay 5-7 days. We will monitor medications and adjust as indicated. Coding Level of Care Code Acute Snow Removal/Plowing for Marianne Sadler
[2020-03-29] MEDS: hyDROXYzine 25 mg Capsule 50 MG PO (21:33)
[2020-03-29 22:00] VITALS: RESP 16
[2020-03-29 23:55] VITALS: BP 136/94
--- NOTE | 2020-03-30 00:40 | PC.NURSE ---
pt was given scheduled valium and PRN zyprexa per request.
[2020-03-30 06:00] VITALS: BP 145/99; PULSE 82; RESP 18; TEMP 36.7; O2SAT 97
[2020-03-30] MEDS: paliperidone ER 6 mg Tablet PO (08:59)
[2020-03-30] MEDS: lithium carbonate 300 mg Capsule 600 MG PO ×2 (08:59→17:35)
[2020-03-30] MEDS: diazePAM 5 mg Tablet PO ×3 (08:59→20:40)
[2020-03-30] MEDS: metoprolol succinate ER (24 HR) 25 mg Tablet PO ×2 (08:59→17:35)
--- NOTE | 2020-03-30 09:23 | P.PN_ITS ---
Subjective NPU Subjective: Interval history: Lesley presents today reporting that she wants to leave. She was really having some stream of consciousness going on as each subject led her to some kind of hyperbole in another subject, or at least what felt like hyperbole. She was focused on things like my shoes, or my eyes, and then used that as a platform to go on a couple minute discussion, leaping topics. That being said, her energy level is much reduced, but she still has some intrusiveness, however, she catches herself sometimes, and she is also more redirectable, by far. But she still seems somewhat dazed and confused. Mental Status Exam MSE Comments: This is a overweight white female with adequate grooming, dress and eye contact. No abnormal movements except for improving psychomotor agitation. Cooperative with exam in no acute distress. Speech was more normal rate and volume. Mood described as good, can I discharge tomorrow, affect slightly subdued. Thought process organized. Thought content: Patient denied suicidal or homicidal ideation, there were no delusions reported but and less paranoid, persecutory delusions were noted, and are less pervasive, she denied any auditory or visual hallucinations. Attention and concentration are improved and memory appears unreliable but none were formally tested. She is alert and oriented x person and place. Insight and judgment appear impaired, but improving. Impulse control is impaired, but improving. Vitals/I&O/Wt Last Vital Signs Temp 98.0 F 03/30/20 06:00 Pulse 82 03/30/20 06:00 Resp 18 03/30/20 06:00 BP 145/99 03/30/20 06:00 Pulse Ox 97 03/30/20 06:00 03/29/20 03/30/20 03/30/20 22:59 06:59 14:59 Intake Total 236 / 236 Balance 236 / 236 Weight last 48 hrs Weight 59.477 kg Home Medications No Known Home Medications 03/20/20 [History Confirmed 03/20/20] Active Medications Acetaminophen (Tylenol) 650 mg PO Q4H PRN PRN Reason: MILD PAIN Last Admin: 03/28/20 10:48 Dose: 650 mg Documented by: Benztropine Mesylate (Cogentin) 1 mg PO BID PRN PRN Reason: Mild Extrapyramidal symptoms Camphor/Menthol/Phenol (Blistex) 1 applic TOPICAL Q1H PRN PRN Reason: DRYNESS Chlorpromazine HCl (Thorazine) 25 mg PO Q4H PRN PRN Reason: AGITATION Last Admin: 03/24/20 20:24 Dose: 25 mg Documented by: Diazepam (Valium) 5 mg PO TID [facility] Last Admin: 03/30/20 16:31 Dose: 5 mg Documented by: Diphenhydramine HCl (Benadryl) 50 mg IM ONCE PRN PRN Reason: Severe Extrapyramidal Symptoms Diphenhydramine HCl (Benadryl) 50 mg IM Q4H PRN PRN Reason: Severe Aggression Hydroxyzine Pamoate (Vistaril) 50 mg PO Q6H PRN PRN Reason: ANXIETY Last Admin: 03/29/20 21:33 Dose: 50 mg Documented by: Yoe Carbonate (Eskalith) 600 mg PO BID [facility] Last Admin: 03/30/20 17:35 Dose: 600 mg Documented by: Loperamide HCl (Imodium Capsule) 2 mg PO Q6H PRN PRN Reason: DIARRHEA Lorazepam (Ativan) 2 mg IM Q4H PRN PRN Reason: SEVERE AGITATION Last Admin: 03/25/20 09:15 Dose: 2 mg Documented by: Metoprolol Succinate (Toprol Xl) 25 mg PO BID [facility] Last Admin: 03/30/20 17:35 Dose: 25 mg Documented by: Nicotine (Nicoderm 21 Mg Patch) 1 patch TRANSDERMA DAILY PRN PRN Reason: NICOTINE WITHDRAWAL Last Admin: 03/20/20 08:03 Dose: 1 patch Documented by: Nicotine Polacrilex (Nicorette) 2 mg BUCCAL Q2H PRN PRN Reason: NICOTINE WITHDRAWAL Last Admin: 03/30/20 17:35 Dose: 2 mg Documented by: Olanzapine (Zyprexa Zydis) 5 mg PO Q4H PRN PRN Reason: Agitation/Psychosis Last Admin: 03/26/20 23:33 Dose: 5 mg Documented by: Olanzapine (Zyprexa) 10 mg IM Q4H PRN PRN Reason: SEVERE AGITATION Last Admin: 03/25/20 09:15 Dose: 10 mg Documented by: Ondansetron HCl (Zofran) 4 mg PO Q6H PRN PRN Reason: NAUSEA AND VOMITING Paliperidone (Invega) 6 mg PO DAILY [facility] Last Admin: 03/30/20 08:59 Dose: 6 mg Documented by: Simethicone (Mylicon Tab) 80 mg PO QID PRN PRN Reason: FLATULENCE Last Admin: 03/28/20 21:59 Dose: 80 mg Documented by: A&P Additional A&P Information (1) Bipolar 1 disorder, manic, moderate: This is a 50-year-old white female with history of bipolar disorder and addiction who presents floridly psychotic and now on a 21-day hold. 1. Continue current medication. Trying to determine if she is well enough to move forward with the injection. We will check lithium level tomorrow. 2. Encourage individual, group and milieu therapy. 3. Continue to 15-minute checks for safety. (2) Drug-induced psychotic disorder: (3) Acute psychosis: Involuntary Hold Information 96 Hour Hold: 96 Hour Involuntary Admission: Yes 96 Hour Hold Ending Date: 03/18/20 96 Hour Hold Ending Time: 12:25 Attestations NPU Medical Necessity Statement*: Inpatient hospitalization is medically necessary and the clinically appropriate intervention at this time.Likely length of stay 5-7 days. We will monitor medications and adjust as indicated. Coding Level of Care Code Acute Real Estate Job Titles for Marianne Sadler
[2020-03-30 14:00] VITALS: BP 153/94; PULSE 98; RESP 18; TEMP 37.1; O2SAT 98
[2020-03-30] MEDS: nicotine 2 mg Gum BUCCAL (17:35)
[2020-03-30] MEDS: hyDROXYzine 25 mg Capsule 50 MG PO (20:40)
[2020-03-30] MEDS: OLANZapine 5 mg ODT PO (20:40)
[2020-03-30 21:00] VITALS: BP 159/105; PULSE 91; RESP 20; TEMP 36.4; O2SAT 97
--- NOTE | 2020-03-30 22:10 | PC.NURSE ---
Visteril and Zypreax given with 2100 mneication for anxiety / agitation.
[2020-03-31 06:00] VITALS: BP 147/96; PULSE 90; RESP 16; TEMP 36.5; O2SAT 99
[2020-03-31] MEDS: diazePAM 5 mg Tablet PO ×3 (08:12→21:48)
[2020-03-31] MEDS: metoprolol succinate ER (24 HR) 25 mg Tablet PO ×2 (08:13→18:07)
[2020-03-31] MEDS: lithium carbonate 300 mg Capsule 600 MG PO ×2 (08:13→18:49)
[2020-03-31] MEDS: paliperidone ER 6 mg Tablet PO (08:14)
--- NOTE | 2020-03-31 11:36 | P.PN_ITS ---
Subjective NPU Subjective: Interval history: Lesley presents today continuing to show slow improvement. In her improvement she is having some lowered intrusiveness. She is doing better with self care and bathing, and things of that nature. She is continuing to focus on discharge. She is seeming less confused, but denies any concerns at this time. Working with social work for possible options, after discharge. Unfortunately, some of the ones that she is identifying, family seems to have concerns with her safety and well being in those settings. Mental Status Exam MSE Comments: This is a overweight white female with adequate grooming, dress and eye contact. No abnormal movements except for improving psychomotor agitation. Cooperative with exam in no acute distress. Speech was more normal rate and volume. Mood described as better, affect slightly subdued. Thought process organized. Thought content: Patient denied suicidal or homicidal ideation, there were no delusions reported and less paranoid, persecutory delusions were noted, and are less pervasive, she denied any auditory or visual hallucinations. Attention and concentration are improved and memory appears unreliable but none were formally tested. She is alert and oriented x person and place. Insight and judgment appear limited, but improving. Impulse control is impaired, but improving. Vitals/I&O/Wt Last Vital Signs Temp 97.3 F L 03/31/20 20:10 Pulse 93 03/31/20 20:10 Resp 18 03/31/20 20:10 BP 131/92 03/31/20 20:10 Pulse Ox 95 03/31/20 20:10 Weight last 48 hrs Weight 59.477 kg A&P Assessment and plan (1) Bipolar 1 disorder, manic, moderate: Status: Acute (2) Drug-induced psychotic disorder: Status: Acute (3) Acute psychosis: Status: Acute Additional A&P Information This is a 50-year-old white female with history of bipolar disorder and addiction who presents floridly psychotic and now on a 21-day hold. 1. Continue current medication. Trying to determine if she is well enough to move forward with the injection. We will check lithium level. 2. Encourage individual, group and milieu therapy. 3. Continue to 15-minute checks for safety. Involuntary Hold Information 96 Hour Hold: 96 Hour Involuntary Admission: Yes 96 Hour Hold Ending Date: 03/18/20 96 Hour Hold Ending Time: 12:25 Attestations NPU Medical Necessity Statement*: Inpatient hospitalization is medically necessary and the clinically appropriate intervention at this time.Likely length of stay 5-7 days. We will monitor medications and adjust as indicated. Coding Level of Care Code Acute Clinical Specialist Vascular for [facility] Fwd Diagnoses Bipolar 1 disorder, manic, moderate F31.12 Drug-induced psychotic disorder F19.959 Acute psychosis F23
[2020-03-31] MEDS: nicotine 2 mg Gum BUCCAL (13:51)
[2020-03-31 14:00] VITALS: BP 147/96; PULSE 90; RESP 16; TEMP 36.5; O2SAT 99
[2020-03-31 19:38] LABS: Lithium 0.6 mmol/L (0.6-1.2)
[2020-03-31 20:10] VITALS: BP 131/92; PULSE 93; RESP 18; TEMP 36.3; O2SAT 95
[2020-03-31] MEDS: hyDROXYzine 25 mg Capsule 50 MG PO (21:48)
--- NOTE | 2020-04-01 03:37 | PC.NURSE ---
At HS, pt was given scheduled valium and PRN vistaril per request.
[2020-04-01 06:00] VITALS: BP 160/99; PULSE 81; RESP 16; TEMP 36.8; O2SAT 98
[2020-04-01] MEDS: metoprolol succinate ER (24 HR) 25 mg Tablet PO ×2 (09:03→18:24)
[2020-04-01] MEDS: lithium carbonate 300 mg Capsule 600 MG PO ×2 (09:03→18:24)
[2020-04-01] MEDS: paliperidone ER 6 mg Tablet PO (09:03)
[2020-04-01] MEDS: diazePAM 5 mg Tablet PO ×3 (09:03→21:36)
[2020-04-01] MEDS: nicotine 21 mg Patch 1 PATCH TRANSDERMA (11:41)
--- NOTE | 2020-04-01 12:33 | P.PN_ITS ---
Subjective NPU Subjective: Interval history: Lesley presents today continuing to be calmer but continuing to also seem like she is not with it. We are doing some verification to make sure that she would be able to economically manage the injection of the Invega, as she seems to be improving, seems to be less intrusive, seems to be more able to be redirected, and catch herself and do some self-redirection. We have not been able to connect with her significant other and so the treatment team moved to look at alternative realities given that she cannot go with her daughter and she has limited resources. She reports she is eating okay, sleeping fine, and managing her ADL?s here. Mental Status Exam MSE Comments: This is a overweight white female with adequate grooming, dress and eye contact. No abnormal movements except. Cooperative with exam in no acute distress. Speech was normal rate and volume. Mood described as pretty good, affect slightly subdued. Thought process organized. Thought content: Patient denied suicidal or homicidal ideation, there were no delusions reported or noted, she denied any auditory or visual hallucinations. Attention and concentration are improved and memory appears unreliable but none were formally tested. She is alert and oriented x person and place. Insight and judgment appear limited, but improving. Impulse control is impaired, but improving. Vitals/I&O/Wt Last Vital Signs Temp 97.7 F 04/01/20 20:35 Pulse 99 04/01/20 20:35 Resp 16 04/01/20 20:35 BP 171/91 04/01/20 20:35 Pulse Ox 97 04/01/20 20:35 A&P Additional A&P Information (1) Bipolar 1 disorder, manic, moderate: (2) Drug-induced psychotic disorder: (3) Acute psychosis: This is a 50-year-old white female with history of bipolar disorder and addiction who presents floridly psychotic and now on a 21-day hold. 1. Continue current medication. Trying to determine if fiscally sound to move forward with the injection. lithium level 0.6. 2. Encourage individual, group and milieu therapy. 3. Continue to 15-minute checks for safety. Involuntary Hold Information 96 Hour Hold: 96 Hour Involuntary Admission: Yes 96 Hour Hold Ending Date: 03/18/20 96 Hour Hold Ending Time: 12:25 Attestations NPU Medical Necessity Statement*: Inpatient hospitalization is medically necessary and the clinically appropriate intervention at this time.Likely length of stay 3-5 days. We will monitor medications and adjust as indicated. Coding Level of Care Code Acute Mechanical Systems Design Engineer for Marianne Sadler
[2020-04-01 14:00] VITALS: BP 156/93; PULSE 97; RESP 20; TEMP 36.6; O2SAT 96
[2020-04-01] MEDS: nicotine 2 mg Gum BUCCAL (19:40)
[2020-04-01 20:35] VITALS: BP 171/91; PULSE 99; RESP 16; TEMP 36.5; O2SAT 97
[2020-04-01] MEDS: hyDROXYzine 25 mg Capsule 50 MG PO (21:36)
[2020-04-02 06:00] VITALS: BP 151/99; PULSE 74; RESP 15; TEMP 36.4; O2SAT 99
[2020-04-02] MEDS: diazePAM 5 mg Tablet PO ×3 (08:53→21:16)
[2020-04-02] MEDS: metoprolol succinate ER (24 HR) 25 mg Tablet PO ×2 (08:53→17:03)
[2020-04-02] MEDS: paliperidone ER 6 mg Tablet PO (08:53)
[2020-04-02] MEDS: lithium carbonate 300 mg Capsule 600 MG PO ×2 (08:53→17:03)
[2020-04-02] MEDS: nicotine 2 mg Gum BUCCAL ×3 (08:59→17:08)
--- NOTE | 2020-04-02 11:08 | PM.NPN ---
Subjective NPU Subjective: Interval history: Lesley presents today being very much more engaged in her treatment. She is participating with social work and making calls to find a location for her to maybe get continued treatment, and also possibly serve as her housing circumstance. It does not appear that going back with her ex is in her best interest in relation to mental health or addiction issues. Her daughter, who would be the only other real resource, has a full family and full work schedule and is not in a position to really help her, at the level of help that she needs, at this moment. There have been no positive responses, so far, from the calls, but she is calling and is, with some assistance, able to stay on task during the calls. She reports that she is eating better and sleeping well. Mental Status Exam MSE Comments: This is a overweight white female with adequate grooming, dress and eye contact. No abnormal movements except. Cooperative with exam in no acute distress. Speech was normal rate and volume. Mood described as ready to go, affect slightly subdued. Thought process organized. Thought content: Patient denied suicidal or homicidal ideation, there were no delusions reported or noted, she denied any auditory or visual hallucinations. Attention and concentration are improved and memory appears unreliable but none were formally tested. She is alert and oriented x person and place. Insight and judgment appear limited, but improving. Impulse control is impaired, but improving. Vitals/I&O/Wt Last Vital Signs Temp 97.7 F 04/02/20 20:51 Pulse 89 04/02/20 20:51 Resp 18 04/02/20 20:51 BP 150/97 04/02/20 20:51 Pulse Ox 98 04/02/20 20:51 A&P Additional A&P Information (1) Bipolar 1 disorder, manic, moderate: (2) Drug-induced psychotic disorder: (3) Acute psychosis: This is a 50-year-old white female with history of bipolar disorder and addiction who presents floridly psychotic and now on a 21-day hold. 1. Continue current medication. Consider the injection. 2. Encourage individual, group and milieu therapy. 3. Continue to 15-minute checks for safety. Involuntary Hold Information 96 Hour Hold: 96 Hour Involuntary Admission: Yes 96 Hour Hold Ending Date: 03/18/20 96 Hour Hold Ending Time: 12:25 Attestations NPU Medical Necessity Statement*: Inpatient hospitalization is medically necessary and the clinically appropriate intervention at this time.Likely length of stay 2-4 days. We will monitor medications and adjust as indicated. Coding Level of Care Code Acute Wellness Trainer for Marianne Sadler
[2020-04-02 14:00] VITALS: BP 135/91; PULSE 92; RESP 18; TEMP 37; O2SAT 99
[2020-04-02 20:51] VITALS: BP 150/97; PULSE 89; RESP 18; TEMP 36.5; O2SAT 98
[2020-04-02] MEDS: hyDROXYzine 25 mg Capsule 50 MG PO (21:16)
--- NOTE | 2020-04-02 22:32 | PC.NURSE ---
Pt given scheduled Valium and PRN Vistaril per request.
[2020-04-03 06:00] VITALS: BP 141/93; PULSE 76; RESP 16; TEMP 36.5; O2SAT 97
[2020-04-03] MEDS: metoprolol succinate ER (24 HR) 25 mg Tablet PO ×2 (08:21→16:58)
[2020-04-03] MEDS: lithium carbonate 300 mg Capsule 600 MG PO ×2 (08:21→16:58)
[2020-04-03] MEDS: paliperidone ER 6 mg Tablet PO (08:21)
[2020-04-03] MEDS: diazePAM 5 mg Tablet PO ×3 (08:21→22:51)
[2020-04-03] MEDS: nicotine 2 mg Gum BUCCAL ×4 (08:22→17:59)
--- NOTE | 2020-04-03 09:17 | PC.NURSE ---
Kristofer is talkative and positive this morning. She would like to speak to Kurtis from social work to discuss her release and placement outside the unit.
[2020-04-03] MEDS: paliperidone palmitate 234 mg Syringe IM (09:53)
--- NOTE | 2020-04-03 13:04 | P.PN_ITS ---
Subjective NPU Subjective: Interval history: Lesley presents today reporting that it has been fairly frustrating making the calls and getting no responses that have been supportive, but she continues to make them. She is having more and more clarity and less and less non-goal directed speech and appearing less confused. She is much more redirectable, not having odd pacing at this point. She would previously walk back and forth between a spot almost aimlessly. She seems to have much more goal directed behavior beginning to emerge. Otherwise she is eating fine and sleeping much better. Mental Status Exam MSE Comments: This is a overweight white female with adequate grooming, dress and eye contact. No abnormal movements except. Cooperative with exam in no acute distress. Speech was normal rate and volume. Mood described as better, affect brighter. Thought process organized. Thought content: Patient denied suicidal or homicidal ideation, there were no delusions reported or noted, she denied any auditory or visual hallucinations. Attention and concentration are improved and memory appears unreliable but none were formally tested. She is alert and oriented x person and place. Insight and judgment appear limited, but improving. Impulse control is improving. Vitals/I&O/Wt Last Vital Signs Temp 98.4 F 04/03/20 20:16 Pulse 84 04/03/20 20:16 Resp 15 04/03/20 20:16 BP 148/97 04/03/20 20:16 Pulse Ox 97 04/03/20 20:16 A&P Additional A&P Information (1) Bipolar 1 disorder, manic, moderate: (2) Drug-induced psychotic disorder: (3) Acute psychosis: This is a 50-year-old white female with history of bipolar disorder and addiction who presents floridly psychotic and now on a 21-day hold. 1. Continue current medication. Received Invega injection 2. Encourage individual, group and milieu therapy. 3. Continue to 15-minute checks for safety. 4. continue work on discharge. Involuntary Hold Information 96 Hour Hold: 96 Hour Involuntary Admission: Yes 96 Hour Hold Ending Date: 03/18/20 96 Hour Hold Ending Time: 12:25 Attestations NPU Medical Necessity Statement*: Inpatient hospitalization is medically necessary and the clinically appropriate intervention at this time.Likely length of stay 1-3 days. We will monitor medications and adjust as indicated. Coding Level of Care Code Acute Remote Sensing Specialist for Marianne Sadler
[2020-04-03 14:00] VITALS: BP 142/88; PULSE 87; RESP 20; TEMP 36.9; O2SAT 98
[2020-04-03 20:16] VITALS: BP 148/97; PULSE 84; RESP 15; TEMP 36.9; O2SAT 97
[2020-04-04 06:00] VITALS: BP 148/97; PULSE 84; RESP 15; TEMP 36.9; O2SAT 97
[2020-04-04 06:29] VITALS: BP 145/90; PULSE 78; RESP 13; TEMP 36.2; O2SAT 96
[2020-04-04] MEDS: paliperidone ER 6 mg Tablet PO (08:27)
[2020-04-04] MEDS: lithium carbonate 300 mg Capsule 600 MG PO ×2 (08:27→17:05)
[2020-04-04] MEDS: diazePAM 5 mg Tablet PO ×3 (08:27→21:41)
[2020-04-04] MEDS: metoprolol succinate ER (24 HR) 25 mg Tablet PO ×2 (08:27→17:05)
[2020-04-04 12:13] VITALS: BP 173/99; PULSE 88; RESP 18; TEMP 36.9; O2SAT 98
[2020-04-04] MEDS: nicotine 2 mg Gum BUCCAL ×2 (12:58→15:44)
[2020-04-04] MEDS: acetaminophen 325 mg Tablet 650 MG PO (15:11)
--- NOTE | 2020-04-04 17:58 | P.PN_ITS ---
Subjective NPU Subjective: Interval history: Lesley presents today reporting that she was making the calls and getting no responses, but she and the social media director got her an opportunity. She is having more and more clarity and appearing less confused. She is much more redirectable. Otherwise she is eating fine and sleeping much better. Plan for discharge tomorrow. Mental Status Exam MSE Comments: This is a overweight white female with adequate grooming, dress and eye contact. No abnormal movements except. Cooperative with exam in no acute distress. Speech was normal rate and volume. Mood described as happy, affect brighter. Thought process organized. Thought content: Patient denied suicidal or homicidal ideation, there were no delusions reported or noted, she denied any auditory or visual hallucinations. Attention and concentration are improved and memory appears unreliable but none were formally tested. She is alert and oriented x 3. Insight and judgment improving. Impulse control is improving. Vitals/I&O/Wt Last Vital Signs Temp 98.4 F 04/04/20 12:13 Pulse 88 04/04/20 12:13 Resp 18 04/04/20 12:13 BP 173/99 04/04/20 12:13 Pulse Ox 98 04/04/20 12:13 A&P Additional A&P Information (1) Bipolar 1 disorder, manic, moderate: (2) Drug-induced psychotic disorder: (3) Acute psychosis: This is a 50-year-old white female with history of bipolar disorder and addiction who presents much improved and now on a 21-day hold. 1. Continue current medication. Tolerating Invega injection 2. Encourage individual, group and milieu therapy. 3. Continue to 15-minute checks for safety. 4. continue work on discharge. Involuntary Hold Information 96 Hour Hold: 96 Hour Involuntary Admission: Yes 96 Hour Hold Ending Date: 03/18/20 96 Hour Hold Ending Time: 12:25 Attestations NPU Medical Necessity Statement*: Inpatient hospitalization is medically necessary and the clinically appropriate intervention at this time.Discharge tomorrow. Coding Level of Care Code Acute General Labor Forklift Operator for Marianne Sadler
[2020-04-04 21:42] VITALS: BP 166/108; PULSE 87; RESP 22; TEMP 36.4; O2SAT 98
[2020-04-05 06:00] VITALS: BP 150/99; PULSE 88; RESP 19; TEMP 36.9; O2SAT 99
--- NOTE | 2020-04-05 09:03 | P.DS_ITS ---
Diagnoses at Discharge Discharge Diagnosis (1) Bipolar 1 disorder, manic, moderate: Status: Acute (2) Drug-induced psychotic disorder: Status: Acute (3) Acute psychosis: Status: Resolved Reason for Visit Reason for Visit: direct admit npu Brief History: History of Present Illness History of present illness:Lesley Johnson is a 50 year old female who was transferred from [facility] in [place] on a 96-hour involuntary commitment. The patient is unable to provide significant personal i nformation or historic information at the time of interview as described below in her mental status. However records indicate that police found her [employer] day[facility] in [facility]. She was presenting with disorganized and illogical behavior. There is no indication of suicidal or homicidal ideation or self- injurious activity. However she was quite confused and she was taken to the emergency room because of fear that she could not maintain herself free of danger. She admitted to police that she had been using methamphetamine. Records indicate that she had been in the multiple emergency room multiple times before with similar problems. Urine drug screen is positive for amphetamines and marijuana. Alcohol level was below the measurable limit. Progress note from [facility] [employer] says that the person had spoken with the daughter. Family indicated that the patient claimed that she was not doing drugs and admitted that she was also not being compliant with her psychiatric medications. Mental health history: Records indicate that she has been diagnosed with bipolar disorder, generalized anxiety disorder, PTSD, substance abuse disorder and the methamphetamine abuse. However there is no indication that he is diagnoses have been acquired from the reliable information source. Social history: Unknown Legal history: Public record indicates that most recently she was charged and convicted of second-degree burglary in 2016. Prior to that, she has arrests and convictions of harassment, placement of a protection order and arrest for marijuana possession. It is also noted that just 3 weeks ago she was in court for a landlord to try to get rent and have her evicted. Past medical history: Listed allergies that are not confirmed: Codeine, Geodon, Haldol, lisinopril Current medication list includes Lamictal, Wellbutrin, buspirone, hydrochlorothiazide, simvastatin, atenolol, hydroxyzine, and aspirin. hypertension, overactive bladder CBC is within normal limits. Routine chemistries within normal limits. Thyroid functions within normal limits. Urine drug screen is positive for amphetamines and marijuana. Alcohol level was below the measurable limit. Urinalysis was unremarkable. She smokes 1/2 pack of cigarettes per day. Hospital Course Hospital Course Lesley presented to the emergency room being transferred from [place] with acute psychosis with methamphetamine abuse. She admitted to using methamphetamines a day before presenting to [facility] emergency room. She appeared psychotic with flight of ideas, rambling, and agitated with apparent manic symptoms. She was under a 96-hour hold and was admitted to the neuropsychiatric unit for definitive treatment of those issues. She was initiated on Jermyn which was titrated to 600 mg po bid. She had a Jermyn level on 03-31 that was 0.6 and one pending at the time of this note. She was having limited improvement until she was started on Invega 6 mg qam and ultimately had the Invega injection on 04-02 which showed marked improvement. At the outside hospital, she had routine laboratory studies which were within normal limits, except for a few outliers. Additionally, he had a general medical evaluation which was within normal limits and revealed no new acute processes. Discharge Summary At the time of discharge the patient denied all lethality, was absent psychosis, and mood and anxiety were well managed. The patient endorsed a plan to avoid all drugs of abuse and to follow-up with outpatient services, as recommended. She was evaluated and deemed to be absent credible lethality, and had achieved the maximum benefit from an inpatient hospitalization, and so she was discharged. Involuntary Hold Information 96 Hour Hold: 96 Hour Involuntary Admission: Yes 96 Hour Hold Ending Date: 03/18/20 96 Hour Hold Ending Time: 12:25 Mental Status Exam MSE Comments: This is a overweight white female with adequate grooming, dress and eye contact. No abnormal movements except. Cooperative with exam in no acute distress. Speech was normal rate and volume. Mood described as happy, affect brighter. Thought process organized. Thought content: Patient denied suicidal or homicidal ideation, there were no delusions reported or noted, she denied any auditory or visual hallucinations. Attention and concentration are improved and memory appears more reliable but none were formally tested. She is alert and oriented x 3. Insight and judgment improving. Impulse control is improving. Discharge Data Vitals: Last Vital Signs Temp 98.4 F 04/05/20 06:00 Pulse 88 04/05/20 06:00 Resp 19 H 04/05/20 06:00 BP 150/99 04/05/20 06:00 Pulse Ox 99 04/05/20 06:00 Discharge Plan Discharge Patient Disposition: Home Condition: Stable Prescriptions: New metoprolol succinate 50 mg capsule,sprinkle,ER 24hr 50 mg PO BID 30 Days Qty: 60 RF: 1 lithium carbonate 300 mg Capsule 600 mg PO BID 30 Days Qty: 120 RF: 1 diazepam 5 mg Tablet 5 mg PO BID 30 Days Qty: 60 RF: 1 Invega Sustenna 156 mg/mL syringe 156 mg IM Q30D Qty: 1 RF: 1 Continued No Known Home Medications RF: 0 Discharge Orders: Discharge Order (Routine); Ordered 04/05/20 Ordered By: Shyam Cochran Referrals: [facility] [Other] (possible resource for follow-up outpatient mental health services. ) [facility] [Other] (You will go here first and they will take you to the [place] of On license of [facility].) [facility] [Other] - 04/10/20 (Referral has been sent for you to get your next Invega injection 156mg on April 10, 2020.) Discharge Diet: Regular Discharge Activity: Resume usual activity Patient Instructions: Metoprolol (By mouth), Diazepam (By mouth), Jermyn (By mouth), Paliperidone (Injection), Bipolar Disorder (DC) Discharge Date/Time: 04/05/20 14:45 Discharge Attestations NPU Time Spent in Discharge Care*: less than 30 min Specific Discharge Activities: Specific discharge activities: educating patient, discussing with hospice case manager/social workers/dc planners, documenting/other paperwork and evaluating patient/reviewing data Coding Level of Care Code Acute Rn Hemodialysis for [facility] Fwd Diagnoses Bipolar 1 disorder, manic, moderate F31.12 Drug-induced psychotic disorder F19.959 Acute psychosis F23
[2020-04-05] MEDS: paliperidone ER 6 mg Tablet PO (09:26)
[2020-04-05] MEDS: diazePAM 5 mg Tablet PO (09:27)
[2020-04-05] MEDS: metoprolol succinate ER (24 HR) 25 mg Tablet PO (09:27)
[2020-04-05] MEDS: nicotine 2 mg Gum BUCCAL ×2 (09:41→13:27)
[2020-04-05 10:55] LABS: Lithium 0.7 mmol/L (0.6-1.2)
[2020-04-05 12:17] VITALS: BP 150/99; PULSE 88; RESP 19; TEMP 36.9; O2SAT 99
[2020-04-05] MEDS: lithium carbonate 300 mg Capsule 600 MG PO (12:40)
[2020-04-05 14:00] VITALS: BP 163/111; PULSE 104; RESP 19; TEMP 36.7
== END 2020-04-05 14:45 | disposition home or self-care (01) | DRG 885 ==
LOC: ER 12:10 → NP 12:13
PROVIDERS: Admitting Provider Psychiatry & Neurology Psychiatry; Visit Provider Psychiatry & Neurology Psychiatry
DX: F31.12 Bipolar disorder, current episode manic without psychotic features, moderate (principal); F23 Brief psychotic disorder; F15.129 Other stimulant abuse with intoxication, unspecified; F12.929 Cannabis use, unspecified with intoxication, unspecified; F41.1 Generalized anxiety disorder; F43.10 Post-traumatic stress disorder, unspecified; F17.210 Nicotine dependence, cigarettes, uncomplicated
CPT/HCPCS: 12345; 36415; 80178; 96372; 99284; J2060; J3490; Q0161

== ENCOUNTER 2020-03-12 11:34 | Emergency (ER) | payer MEDICAID, SELFPAY | END 2020-03-12 12:16 | disposition admitted as inpatient to this hospital (09) | LOC: ER 03-14 02:43 | PROVIDERS: Emergency Provider Emergency Medicine | DX: F19.959 Other psychoactive substance use, unspecified with psychoactive substance-induced psychotic disorder, unspecified (principal) | CPT/HCPCS: 99284; 99285 ==